=== PATIENT | male | born 1960 | race Caucasian/White ===

== ENCOUNTER 2016-08-02 08:59 | Observation (INO) | payer MEDICARE, OTHER ==
[2016-08-02] MEDS ORDERED: methylPREDNISolone Sodium Succinate 125 MG/2 ML SDV IVPUSH ONE (09:10)
[2016-08-02] MEDS ORDERED: Albuterol/Ipratropium 3.0-0.5 MG/3 ML Neb Soln NEB ONE (09:10)
--- NOTE | 2016-08-02 09:59 | EDM.PDOC ---
[id number]: NECK Time Seen by Provider: 08/02/16 09:05 Source of Information: Reports: Patient History Limitations: Reports: Respiratory Distress - History of Present Illness INITIAL COMMENTS - FREE TEXT/NARRATIVE: 55 years old w m with h/o COPD, Asthma, a fib, S/P neck surgery, d/c'd from [place] 2 days ago, came to the ed [facility] he " can not breath. hs HR was 142, Irr irr. SBP was 187, puls ox was 99% on RA. Pt came by EMS, no Family is present. Pt c/o of sore throat as well and feels his neck is tight. no other acute medical issues at this time Onset: Today Onset Date: 08/01/16 Onset Time: 08:00 Duration: Hour(s):, Getting Worse, Intermittent Location: Reports: Chest Quality: Reports: Burning Severity: Moderate Improves with: Reports: Medication Worsens with: Reports: Movement Context: Reports: Trauma (neck surgery) - Related Data Allergies Allergy/AdvReac Type Severity Reaction Status Date / Time No Known Allergies Allergy Verified 08/02/16 09:39 Home Meds: Home Meds Albuterol Sulfate [Albuterol Sulfate HFA] 2 puff INH Q4HR PRN 03/06/14 [History] Allopurinol [Zyloprim] 300 mg PO DAILY 03/06/14 [History] Digoxin 0.25 mg PO DAILY 03/06/14 [History] Omeprazole 20 mg PO BIDAC 03/06/14 [History] Warfarin [Coumadin] 10 mg PO SUTUWETHSA 03/06/14 [History] Budesonide/Formoterol [Symbicort 160-4.5 MCG] 2 inhalation INH BID 04/13/15 [ History] Warfarin [Coumadin] 7.5 mg PO MOFR 01/05/16 [History] atorvaSTATin [Lipitor] 20 mg PO BEDTIME 01/05/16 [History] Acetaminophen [Tylenol] 650 mg PO Q4H PRN #0 tablet 01/06/16 [Rx] Metoprolol Tartrate [Lopressor] 50 mg PO BID tablet 01/06/16 [Rx] Enoxaparin [Lovenox] 150 mg SUBCUT BID 08/02/16 [History] Gabapentin [Neurontin] 600 mg PO BID 08/02/16 [History] Tetrahydrozoline HCl [Visine] 1 drop EYEBOTH DAILY PRN 08/02/16 [History] metFORMIN [Glucophage] 500 mg PO BID 08/02/16 [History] rOPINIRole HCl [Requip] 8 mg PO BEDTIME 08/02/16 [History] Past Medical History Cardiovascular History: Reports: Afib, Hypertension, SOB on Exertion Respiratory History: Reports: COPD, Pneumonia, Recurrent Other Respiratory History: uses CPAP and has sleep apnea Gastrointestinal History: Reports: Irritable Bowel Syndrome Other Gastrointestinal History: diverticulitis Genitourinary History: Reports: Diabetic Nephropathy Musculoskeletal History: Reports: Fracture, Osteoarthritis Neurological History: Reports: Concussion, Neuropathy, Diabetic, Neuropathy, Peripheral Psychiatric History: Reports: ADD, Depression Endocrine/Metabolic History: Reports: Diabetes, Type II - Infectious Disease History Infectious Disease History: Reports: Chicken Pox, Measles, Shingles - Past Surgical History HEENT Surgical History: Reports: Tonsillectomy GI Surgical History: Reports: Hernia Repair/Other Musculoskeletal Surgical History: Reports: Arthroscopic Knee, Other (See Below) Social & Family History - Family History Family Medical History: Noncontributory - Tobacco Use Smoking Status *Q: Former Smoker Years of Tobacco use: 20 Packs/Tins Daily: 2 Used Tobacco, but Quit: Yes Month Tobacco Last Used: quit 2 years ago Second Hand Smoke Exposure: No - Caffeine Use Caffeine Use: Reports: Coffee, Tea Other Caffeine Use: 2 cups per day - Alcohol Use Days Per Week of Alcohol Use: 0 - Recreational Drug Use Recreational Drug Use: No ED ROS GENERAL - Review of Systems Review Of Systems: See Below Constitutional: Reports: No Symptoms HEENT: Reports: Throat Pain Respiratory: Reports: Shortness of Breath, Wheezing Cardiovascular: Reports: Palpitations Endocrine: Reports: No Symptoms GI/Abdominal: Reports: No Symptoms : Reports: No Symptoms Musculoskeletal: Reports: No Symptoms Skin: Reports: No Symptoms Neurological: Reports: No Symptoms Psychiatric: Reports: No Symptoms Hematologic/Lymphatic: Reports: No Symptoms Immunologic: Reports: No Symptoms ED EXAM, GENERAL - Physical Exam Exam: See Below Exam Limited By: Physical Impairment General Appearance: Alert, WD/WN, Anxious, Moderate Distress Eye Exam: Bilateral Eye: Normal Inspection Ears: Normal External Exam Ear Exam: Bilateral Ear: Auricle Normal Nose: Normal Inspection Throat/Mouth: Other (pharyngitis) Head: Atraumatic, Normocephalic Neck: Normal Inspection, Supple Respiratory/Chest: Respiratory Distress, Decreased Breath Sounds, Rhonchi, Wheezing Cardiovascular: Tachycardia, Irregularly Irregular Peripheral Pulses: 1+: Femoral (L), Femoral (R) GI/Abdominal: Normal Bowel Sounds, Soft, Non-Tender (Male) Exam: Deferred Rectal (Males) Exam: Deferred Back Exam: Normal Inspection Extremities: Normal Inspection, Normal Range of Motion, Non-Tender, No Pedal Edema Neurological: Alert, Oriented, CN II-XII Intact, Normal Cognition Psychiatric: Normal Affect, Normal Mood Skin Exam: Warm, Dry, Intact Lymphatic: No Adenopathy EKG INTERPRETATION EKG Date: 08/02/16 Time: 09:50 Rhythm: A-Fib Rate (Beats/Min): 143 [place]: Normal P-Wave: Absent QRS: Normal ST-T: Normal QT: Normal Comparison: NA - No Prior EKG Course - Vital Signs Text/Narrative:: 55 years old w m with h/o COPD, Asthma, a fib, S/P neck surgery, d/c'd from [place] 2 days ago, came [facility] the [place] [facility] he " can not breath. hs HR was 142, Irr irr. SBP was 187, puls ox was 99% on RA. Pt came by EMS, no Family is present. Pt c/o of sore throat as well and feels his neck is tight. no other acute medical issues at this time PE: Morbid obese, pharyngitis, exp wheezes, afib with RVR HTN Labs: HGB A1C1 7.1 CBC wnl INR subtherapeutic (1.05) pt is on Coumadine, D Dimer < 300 RST neg Imaging: Soft tissue neck: neg. CXR COPD, no infiltrates ECG: please see note above Impression: Subtherapeutic INR, Asthma/COPD exacerbation, pharyngitis, morbid obese, Hyponatremia. A fib with RVR Tx: Cardiacem, Duoneb, solu medrol, Reexam: Improved Plan: Admit toe canas. Last Recorded V/S: Last Vital Signs Temp 36.7 C 08/02/16 13:40 Pulse 104 H 08/02/16 15:19 Resp 17 08/02/16 15:19 BP 135/90 08/02/16 15:19 Pulse Ox 97 08/02/16 15:22 - Orders/Labs/Meds Orders: Active Orders 24 hr Category Date Time Status Chest 2V [CR] Stat Exams 08/02/16 09:10 Taken Neck Soft Tissue [CR] Stat Exams 08/02/16 11:13 Taken STREP SCRN A RAPID W CULT CONF [RM] Stat Lab 08/02/16 12:32 Results Sodium Chloride 0.9% [Saline Flush] Med 08/02/16 10:26 Active 10 ml FLUSH ASDIRECTED PRN Saline Lock Insert [OM.PC] Routine Oth 08/02/16 10:26 Ordered Medication Orders Acetaminophen (Tylenol) 650 mg PO Q4H PRN PRN Reason: Pain Albuterol/Ipratropium (Duoneb 3.0-0.5 Mg/3 Ml) 3 ml NEB QIDRT [facility] Allopurinol (Zyloprim) 300 mg PO DAILY [facility] Atorvastatin Calcium (Lipitor) 20 mg PO BEDTIME [facility] Digoxin (Lanoxin) 250 mcg PO DAILY [facility] Gabapentin (Neurontin) 600 mg PO BID [facility] Potassium Chloride/Sodium Chloride (Normal Saline With 20 Meq Kcl) 1,000 mls @ 250 mls/hr IV ASDIRECTED [facility] Stop: 08/02/16 21:14 Potassium Chloride/Sodium Chloride (Normal Saline With 20 Meq Kcl) 1,000 mls @ 125 mls/hr IV ASDIRECTED [facility] Metformin HCl (Glucophage) 500 mg PO BID [facility] Metoprolol Tartrate (Lopressor) 25 mg PO Q6H [facility] Last Admin: 08/02/16 14:23 Dose: 25 mg Metoprolol Tartrate (Lopressor) 5 mg IVPUSH Q4H PRN PRN Reason: HR>120 bpm sustained 20 min Metoprolol Tartrate (Lopressor) 75 mg PO Q12H [facility] (Enoxaparin [Lovenox (] 150 Mg) *Ptom) 150 mg SUBCUT BID [facility] Non-Formulary Medication (Tetrahydrozoline Hcl [Visine]) 1 drop EYEBOTH DAILY PRN PRN Reason: Dry Eyes Omeprazole (Omeprazole) 20 mg PO BID@0600,1730 [facility] Last Admin: 08/02/16 17:17 Dose: 20 mg Ondansetron HCl (Zofran) 4 mg IV Q4H PRN PRN Reason: Nausea/Vomiting Prednisone (Prednisone) 40 mg PO DAILY [facility] Ropinirole HCl (Requip) 8 mg PO BEDTIME [facility] Sodium Chloride (Saline Flush) 10 ml FLUSH ASDIRECTED PRN PRN Reason: Keep Vein Open Last Admin: 08/02/16 10:30 Dose: 10 ml Admin: 08/02/16 10:29 Dose: 10 ml Sodium Chloride (Saline Flush) 10 ml FLUSH ASDIRECTED PRN PRN Reason: Keep Vein Open Warfarin Sodium (Coumadin) 10 mg PO SuTuWeThSa@1600 [facility] Warfarin Sodium (Coumadin) 7.5 mg PO MoFr@1600 [facility] Labs: Laboratory Tests 08/02/16 08/02/16 08/02/16 Range/Units 09:25 09:25 09:25 WBC 8.8 (4.5-12.0) X10-3/uL RBC 5.36 (4.30-5.75) x10(6)uL Hgb 15.2 (11.5-15.5) g/dL Hct 46.4 (30.0-51.3) % MCV 86.4 (80-96) fL MCH 28.3 (27.7-33.6) pg MCHC 32.8 (32.2-35.4) g/dL RDW 14.3 (11.5-15.5) % Plt Count 173 (125-369) X10(3)uL MPV 9.5 (7.4-10.4) fL Neut % (Auto) 71.0 (46-82) % Lymph % (Auto) 17.6 (13-37) % Jackson % (Auto) 8.2 (4-12) % Eos % (Auto) 1 (1.0-5.0) % Baso % (Auto) 3 H (0-2) % Neut # (Auto) 6.3 (1.6-8.3) # Lymph # (Auto) 1.5 (0.6-5.0) # Jackson # (Auto) 0.7 (0.0-1.3) # Eos # (Auto) 0.1 (0.0-0.8) # Baso # (Auto) 0.2 (0.0-0.2) # PT (8.7-11.1) INR (0.89-1.13) D-Dimer, Quantitative 306 (100-400) ng/mL Sodium 134 L (135-145) mmol/L Potassium 4.2 (3.5-5.3) mmol/L Chloride 99 L (100-110) mmol/L Carbon Dioxide 24 (23-29) mmol/L BUN 15 (5-20) mg/dL Creatinine 1.0 (0.6-1.3) mg/dL Est Cr Clr Drug Dosing TNP Estimated GFR (MDRD) > 60 (>60) BUN/Creatinine Ratio 15.0 (9-20) Glucose 208 H (80-116) mg/dL Hemoglobin A1c (4.0-6.0) % Calcium 9.0 (8.6-10.2) mg/dL B-Natriuretic Peptide (0-100) pg/mL 08/02/16 08/02/16 08/02/16 Range/Units 09:25 09:25 10:00 WBC (4.5-12.0) X10-3/uL RBC (4.30-5.75) x10(6)uL Hgb (11.5-15.5) g/dL Hct (30.0-51.3) % MCV (80-96) fL MCH (27.7-33.6) pg MCHC (32.2-35.4) g/dL RDW (11.5-15.5) % Plt Count (125-369) X10(3)uL MPV (7.4-10.4) fL Neut % (Auto) (46-82) % Lymph % (Auto) (13-37) % Jackson % (Auto) (4-12) % Eos % (Auto) (1.0-5.0) % Baso % (Auto) (0-2) % Neut # (Auto) (1.6-8.3) # Lymph # (Auto) (0.6-5.0) # Jackson # (Auto) (0.0-1.3) # Eos # (Auto) (0.0-0.8) # Baso # (Auto) (0.0-0.2) # PT 10.6 (8.7-11.1) INR 1.05 (0.89-1.13) D-Dimer, Quantitative (100-400) ng/mL Sodium (135-145) mmol/L Potassium (3.5-5.3) mmol/L Chloride (100-110) mmol/L Carbon Dioxide (23-29) mmol/L BUN (5-20) mg/dL Creatinine (0.6-1.3) mg/dL Est Cr Clr Drug Dosing Estimated GFR (MDRD) (>60) BUN/Creatinine Ratio (9-20) Glucose (80-116) mg/dL Hemoglobin A1c 7.1 H (4.0-6.0) % Calcium (8.6-10.2) mg/dL B-Natriuretic Peptide 98 (0-100) pg/mL Meds: Medications Generic Name Dose Route Start Last Admin Trade Name Freq PRN Reason Stop Dose Admin Acetaminophen 650 mg 08/02/16 16:26 Tylenol PO Q4H PRN Pain Albuterol/Ipratropium 3 ml 08/02/16 18:00 Duoneb 3.0-0.5 Mg/3 Ml NEB QIDRT [facility] Allopurinol 300 mg 08/03/16 09:00 Zyloprim PO DAILY [facility] Atorvastatin Calcium 20 mg 08/02/16 21:00 Lipitor PO BEDTIME [facility] Digoxin 250 mcg 08/03/16 09:00 Lanoxin PO DAILY [facility] Gabapentin 600 mg 08/02/16 21:00 Neurontin PO BID [facility] Potassium Chloride/Sodium Chloride 1,000 mls @ 250 mls/hr 08/02/16 17:15 Normal Saline With 20 Meq Kcl IV 08/02/16 21:14 ASDIRECTED [facility] Potassium Chloride/Sodium Chloride 1,000 mls @ 125 mls/hr 08/02/16 21:15 Normal Saline With 20 Meq Kcl IV ASDIRECTED [facility] Metformin HCl 500 mg 08/02/16 21:00 Glucophage PO BID [facility] Metoprolol Tartrate 25 mg 08/02/16 14:00 08/02/16 14:23 Lopressor PO 25 mg Q6H [facility] Administration Metoprolol Tartrate 5 mg 08/02/16 14:20 Lopressor IVPUSH Q4H PRN HR>120 bpm sustained 20 min Metoprolol Tartrate 75 mg 08/02/16 21:00 Lopressor PO Q12H [facility] (Enoxaparin [Lovenox 150 mg 08/02/16 21:00 ] 150 Mg) *Ptom SUBCUT BID [facility] Non-Formulary Medication 1 drop 08/02/16 15:15 Tetrahydrozoline Hcl [Visine] EYEBOTH DAILY PRN Dry Eyes Omeprazole 20 mg 08/02/16 17:30 08/02/16 17:17 Omeprazole PO 20 mg BID@0600,1730 [facility] Administration Ondansetron HCl 4 mg 08/02/16 11:19 Zofran IV Q4H PRN Nausea/Vomiting Prednisone 40 mg 08/03/16 09:00 Prednisone PO DAILY [facility] Ropinirole HCl 8 mg 08/02/16 21:00 Requip PO BEDTIME [facility] Sodium Chloride 10 ml 08/02/16 10:26 08/02/16 10:30 Saline Flush FLUSH 10 ml ASDIRECTED PRN Administration Keep Vein Open Sodium Chloride 10 ml 08/02/16 11:19 Saline Flush FLUSH ASDIRECTED PRN Keep Vein Open Warfarin Sodium 10 mg 08/02/16 16:00 Coumadin PO SuTuWeThSa@1600 [facility] Warfarin Sodium 7.5 mg 08/05/16 16:00 Coumadin PO MoFr@1600 [facility] Discontinued Medications Generic Name Dose Route Start Last Admin Trade Name Freq PRN Reason Stop Dose Admin Albuterol/Ipratropium 3 ml 08/02/16 09:10 08/02/16 09:14 Duoneb 3.0-0.5 Mg/3 Ml NEB 08/02/16 09:11 3 ml ONETIME ONE Administration Diltiazem HCl 20 mg 08/02/16 10:01 08/02/16 10:25 Diltiazem IVPUSH 08/02/16 10:02 20 mg ONETIME ONE Administration Methylprednisolone Sodium Succinate 125 mg 08/02/16 09:10 08/02/16 10:20 Solu-Medrol IVPUSH 08/02/16 09:11 125 mg ONETIME ONE Administration Metoprolol Tartrate 50 mg 08/02/16 21:00 Lopressor PO BID [facility] Departure - Departure Time of Disposition: 13:00 Disposition: Refer to Observation Condition: Fair Clinical Impression: Atrial fibrillation with RVR, Neck pain COPD (chronic obstructive pulmonary disease) Qualifiers: COPD type: COPD with acute exacerbation Qualified Code(s): J44.1 - Chronic obstructive pulmonary disease with (acute) exacerbation - Discharge Information - My Orders Last 24 Hours: My Active Orders 08/02/16 09:10 Chest 2V [CR] Stat 08/02/16 10:26 Sodium Chloride 0.9% [Saline Flush] 10 ml FLUSH ASDIRECTED PRN Saline Lock Insert [OM.PC] Routine 08/02/16 11:13 Neck Soft Tissue [CR] Stat 08/02/16 12:32 STREP SCRN A RAPID W CULT CONF [RM] Stat - Assessment/Plan Last 24 Hours: My Active Orders 08/02/16 09:10 Chest 2V [CR] Stat 08/02/16 10:26 Sodium Chloride 0.9% [Saline Flush] 10 ml FLUSH ASDIRECTED PRN Saline Lock Insert [OM.PC] Routine 08/02/16 11:13 Neck Soft Tissue [CR] Stat 08/02/16 12:32 STREP SCRN A RAPID W CULT CONF [RM] Stat
[2016-08-02] MEDS ORDERED: Diltiazem 25 MG/5 ML SDV IVPUSH ONE (10:01)
[2016-08-02] MEDS: Sodium Chloride 0.9% 10 ML Syringe FLUSH PRN ×2 (10:29→10:30)
[2016-08-02] MEDS ORDERED: Ondansetron 4 MG/2 ML SDV IV PRN (11:19)
[2016-08-02] MEDS ORDERED: Sodium Chloride 0.9% 10 ML Syringe FLUSH PRN (11:19)
[2016-08-02] MEDS ORDERED: Metoprolol Tartrate 25 MG Tab PO SCH (14:00)
[2016-08-02] MEDS ORDERED: Metoprolol Tartrate 5 MG/5 ML SDV IVPUSH PRN (14:20)
[2016-08-02] MEDS ORDERED: TETRAHYDROZOLINE HCL EYEBOTH PRN (15:15)
[2016-08-02] MEDS ORDERED: Warfarin 2 MG Tab PO SCH (16:00)
[2016-08-02] MEDS ORDERED: Warfarin 5 MG Tab *PTOM PO SCH (16:00)
--- NOTE | 2016-08-02 16:23 | PCM.HP ---
H&P History of Present Illness - General Date of Service: 08/02/16 Admit Problem/Dx: Admission Diagnosis/Problem Admission Diagnosis/Problem COPD, Moderate chronic obstructive pulmonary disease - Related Data Allergies/Adverse Reactions: Allergies Allergy/AdvReac Type Severity Reaction Status Date / Time No Known Allergies Allergy Verified 08/02/16 09:39 Home Medications: Home Meds Albuterol Sulfate [Albuterol Sulfate HFA] 2 puff INH Q4HR PRN 03/06/14 [History] Allopurinol [Zyloprim] 300 mg PO DAILY 03/06/14 [History] Digoxin 0.25 mg PO DAILY 03/06/14 [History] Omeprazole 20 mg PO BIDAC 03/06/14 [History] Warfarin [Coumadin] 10 mg PO SUTUWETHSA 03/06/14 [History] Budesonide/Formoterol [Symbicort 160-4.5 MCG] 2 inhalation INH BID 04/13/15 [ History] Warfarin [Coumadin] 7.5 mg PO MOFR 01/05/16 [History] atorvaSTATin [Lipitor] 20 mg PO BEDTIME 01/05/16 [History] Acetaminophen [Tylenol] 650 mg PO Q4H PRN #0 tablet 01/06/16 [Rx] Metoprolol Tartrate [Lopressor] 50 mg PO BID tablet 01/06/16 [Rx] Enoxaparin [Lovenox] 150 mg SUBCUT BID 08/02/16 [History] Gabapentin [Neurontin] 600 mg PO BID 08/02/16 [History] Tetrahydrozoline HCl [Visine] 1 drop EYEBOTH DAILY PRN 08/02/16 [History] metFORMIN [Glucophage] 500 mg PO BID 08/02/16 [History] rOPINIRole HCl [Requip] 8 mg PO BEDTIME 08/02/16 [History] Past Medical History Cardiovascular History: Reports: Afib, Hypertension, SOB on Exertion Respiratory History: Reports: COPD, Pneumonia, Recurrent Other Respiratory History: uses CPAP and has sleep apnea Gastrointestinal History: Reports: Irritable Bowel Syndrome Other Gastrointestinal History: diverticulitis Genitourinary History: Reports: Diabetic Nephropathy Musculoskeletal History: Reports: Fracture, Osteoarthritis Neurological History: Reports: Concussion, Neuropathy, Diabetic, Neuropathy, Peripheral Psychiatric History: Reports: ADD, Depression Endocrine/Metabolic History: Reports: Diabetes, Type II - Infectious Disease History Infectious Disease History: Reports: Chicken Pox, Measles, Shingles - Past Surgical History HEENT Surgical History: Reports: Tonsillectomy GI Surgical History: Reports: Hernia Repair/Other Musculoskeletal Surgical History: Reports: Arthroscopic Knee, Other (See Below) Social & Family History - Family History Family Medical History: Noncontributory - Tobacco Use Smoking Status *Q: Former Smoker Years of Tobacco use: 35 Packs/Tins Daily: 2 Used Tobacco, but Quit: Yes Month Tobacco Last Used: 3 years Second Hand Smoke Exposure: No - Caffeine Use Caffeine Use: Reports: Coffee, Soda Other Caffeine Use: 2 cups per day - Alcohol Use Days Per Week of Alcohol Use: 0 - Recreational Drug Use Recreational Drug Use: No Exam - Vital Signs Vital Signs: Last Vital Signs Temp 98.1 F 08/02/16 13:40 Pulse 104 H 08/02/16 15:19 Resp 17 08/02/16 15:19 BP 135/90 08/02/16 15:19 Pulse Ox 97 08/02/16 15:22 Weight: 143.063 kg - Patient Data Result Diagrams: 08/02/16 09:25 08/02/16 09:25 Holden Results Last 24 hrs: Microbiology 08/02/16 12:32 Group A Streptococcus Rapid Screen - Final Throat NEGATIVE STREP A SCREEN *Q Meaningful Use (ADM) - VTE *Q VTE Criteria *Q: - Stroke *Q Stroke Criteria *Q: - AMI *Q AMI Criteria *Q: Orders Last 24hrs: Active Orders 24 hr Category Date Time Status CPAP Adult [RT BiPAP/CPAP] [RC] ASDIRECTED Care 08/02/16 13:58 Active Communication Order [RC] ASDIRECTED Care 08/02/16 14:11 Active Notify Provider [RC] PRN Care 08/02/16 14:11 Active RT Aerosol Therapy [RC] ASDIRECTED Care 08/02/16 16:22 Ordered RT Incentive Spirometry [RC] Q2HWA Care 08/02/16 14:11 Active Telemetry Monitoring [Cardiac Monitoring] [RC] .As Care 08/02/16 11:27 Active Directed Consult to Pharmacy [CONS] Routine Cons 08/02/16 14:11 Active Respiratory Care Assess and Treatment [CONS] Routine Cons 08/02/16 14:11 Active CBC WITH AUTO DIFF [HEME] AM Lab 08/03/16 05:11 Ordered COMPREHENSIVE METABOLIC PN,CMP [CHEM] AM Lab 08/03/16 05:11 Ordered CULTURE STREP A CONFIRMATION [RM] Stat Lab 08/02/16 12:32 Results GLYCOSYLATED HEMOGLOBIN,HGBA1C [CHEM] Routine Lab 08/02/16 09:25 Received INR,PT,PROTHROMBIN TIME [COAG] DAILY Lab 08/03/16 05:10 Ordered INR,PT,PROTHROMBIN TIME [COAG] DAILY Lab 08/04/16 05:10 Ordered INR,PT,PROTHROMBIN TIME [COAG] DAILY Lab 08/05/16 05:10 Ordered INR,PT,PROTHROMBIN TIME [COAG] DAILY Lab 08/06/16 05:10 Ordered INR,PT,PROTHROMBIN TIME [COAG] DAILY Lab 08/07/16 05:10 Ordered INR,PT,PROTHROMBIN TIME [COAG] DAILY Lab 08/08/16 05:10 Ordered MAGNESIUM [CHEM] Routine Lab 08/02/16 16:00 Ordered TROPONIN I [CHEM] Timed Lab 08/02/16 16:00 Ordered TSH ULTRASENSITIVE [CHEM] Timed Lab 08/02/16 16:00 Ordered Acetaminophen [Tylenol] Med 08/02/16 14:18 Ordered 650 mg PO Q4H PRN Albuterol/Ipratropium [DuoNeb 3.0-0.5 MG/3 ML] Med 08/02/16 18:00 Ordered 3 ml NEB QIDRT Allopurinol [Zyloprim] Med 08/03/16 09:00 Ordered 300 mg PO DAILY Digoxin [Digoxin] Med 08/03/16 09:00 Ordered 0.25 mg PO DAILY Enoxaparin [Lovenox] Med 08/02/16 21:00 Active 150 mg SUBCUT BID Gabapentin [Neurontin] Med 08/02/16 21:00 Ordered 600 mg PO BID Metoprolol Tartrate [Lopressor] Med 08/02/16 14:00 Active 25 mg PO Q6H Metoprolol Tartrate [Lopressor] Med 08/02/16 14:20 Active 5 mg IVPUSH Q4H PRN Metoprolol Tartrate [Lopressor] Med 08/02/16 21:00 Ordered 50 mg PO BID Omeprazole [Omeprazole] Med 08/02/16 17:30 Ordered 20 mg PO BIDAC Tetrahydrozoline HCl [Visine] Med 08/02/16 15:15 Ordered 1 drop EYEBOTH DAILY PRN Warfarin [Coumadin] Med 08/02/16 16:00 Ordered 10 mg PO SUTUWETHSA Warfarin [Coumadin] Med 08/05/16 16:00 Ordered 7.5 mg PO MOFR atorvaSTATin [Lipitor] Med 08/02/16 21:00 Ordered 20 mg PO BEDTIME metFORMIN [Glucophage] Med 08/02/16 18:00 Pending 500 mg PO BIDMEALS predniSONE Med 08/03/16 09:00 Active 40 mg PO DAILY rOPINIRole HCl [Requip] Med 08/02/16 21:00 Ordered 8 mg PO BEDTIME rOPINIRole [Requip] Med 08/02/16 21:00 Ordered 1 mg PO BEDTIME EKG 12 Lead [EK] Routine Ther 08/02/16 09:50 Ordered Medication Orders Albuterol/Ipratropium (Duoneb 3.0-0.5 Mg/3 Ml) 3 ml NEB QIDRT [facility] Metformin HCl (Glucophage) 500 mg PO BIDMEALS [facility] Metoprolol Tartrate (Lopressor) 25 mg PO Q6H [facility] Last Admin: 08/02/16 14:23 Dose: 25 mg Metoprolol Tartrate (Lopressor) 5 mg IVPUSH Q4H PRN PRN Reason: HR>120 bpm sustained 20 min Non-Formulary Medication (Acetaminophen [Tylenol]) 650 mg PO Q4H PRN PRN Reason: Pain Non-Formulary Medication (Allopurinol [Zyloprim]) 300 mg PO DAILY [facility] Non-Formulary Medication (Digoxin [Digoxin]) 0.25 mg PO DAILY [facility] Non-Formulary Medication (Metoprolol Tartrate [Lopressor]) 50 mg PO BID [facility] Non-Formulary Medication (Ropinirole [Requip]) 1 mg PO BEDTIME [facility] (Enoxaparin [Lovenox (] 150 Mg) *Ptom) 150 mg SUBCUT BID [facility] Non-Formulary Medication (Gabapentin [Neurontin]) 600 mg PO BID [facility] Non-Formulary Medication (Tetrahydrozoline Hcl [Visine]) 1 drop EYEBOTH DAILY PRN PRN Reason: Dry Eyes Non-Formulary Medication (Atorvastatin [Lipitor]) 20 mg PO BEDTIME [facility] Non-Formulary Medication (Ropinirole Hcl [Requip]) 8 mg PO BEDTIME [facility] Non-Formulary Medication (Warfarin [Coumadin]) 10 mg PO SUTUWETHSA [facility] Non-Formulary Medication (Warfarin [Coumadin]) 7.5 mg PO MOFR [facility] Non-Formulary Medication (Omeprazole [Omeprazole]) 20 mg PO BIDAC [facility] Ondansetron HCl (Zofran) 4 mg IV Q4H PRN PRN Reason: Nausea/Vomiting Prednisone (Prednisone) 40 mg PO DAILY [facility] Sodium Chloride (Saline Flush) 10 ml FLUSH ASDIRECTED PRN PRN Reason: Keep Vein Open Last Admin: 08/02/16 10:30 Dose: 10 ml Admin: 08/02/16 10:29 Dose: 10 ml Sodium Chloride (Saline Flush) 10 ml FLUSH ASDIRECTED PRN PRN Reason: Keep Vein Open
[2016-08-02] MEDS ORDERED: Acetaminophen 325 MG Tab PO PRN (16:26)
[2016-08-02] MEDS ORDERED: NS + KCl 20mEq/L 1,000 ML IV SCH ×2 (17:15→21:15)
[2016-08-02] MEDS: Omeprazole 20 MG Cap.CR *PTOM PO SCH (17:17)
[2016-08-02] MEDS ORDERED: METOPROLOL TARTRATE 50 MG PO ONE (18:36)
[2016-08-02] MEDS ORDERED: Acetaminophen/HYDROcodone 325-5 MG Tab PO PRN (18:39)
[2016-08-02] MEDS: Albuterol/Ipratropium 3.0-0.5 MG/3 ML Neb Soln NEB SCH ×2 (18:59→21:36)
[2016-08-02] MEDS ORDERED: Aluminum Hydroxide/Magnesium Hydroxide Susp 30 ML Cup PO PRN (20:26)
[2016-08-02] MEDS ORDERED: ROPINIROLE 1 MG PO SCH (21:00)
[2016-08-02] MEDS ORDERED: METOPROLOL TARTRATE 50 MG PO SCH ×2 (21:00)
[2016-08-02] MEDS ORDERED: atorvaSTATin 20 MG Tab *PTOM PO SCH (21:00)
[2016-08-02] MEDS ORDERED: ROPINIROLE 4 MG PO SCH (21:00)
[2016-08-02] MEDS: ENOXAPARIN 150 MG SUBCUT SCH (21:37)
[2016-08-02] MEDS: metFORMIN 500 MG Tab *PTOM PO SCH (21:37)
[2016-08-02] MEDS: Gabapentin 600 MG Tab *PTOM PO SCH (21:39)
[2016-08-03] MEDS: Omeprazole 20 MG Cap.CR *PTOM PO SCH ×2 (06:34→16:45)
[2016-08-03] MEDS ORDERED: Metoprolol Tartrate 100 MG Tab PO SCH ×2 (07:00→18:30)
[2016-08-03] MEDS: Albuterol/Ipratropium 3.0-0.5 MG/3 ML Neb Soln NEB SCH ×3 (07:05→15:09)
[2016-08-03] MEDS ORDERED: METOPROLOL TARTRATE 50 MG PO SCH (08:00)
[2016-08-03] MEDS ORDERED: DIGOXIN 250 MCG PO SCH (09:00)
[2016-08-03] MEDS ORDERED: predniSONE 20 MG Tab PO SCH (09:00)
[2016-08-03] MEDS ORDERED: Allopurinol 300 MG Tab *PTOM PO SCH (09:00)
--- NOTE | 2016-08-03 09:11 | CR ---
INDICATION: Shortness of breath. CHEST: PA and lateral views of the chest, 08/02/2016, were compared with 2015 and 11/30/2015, again revealing the heart to appear prominent, at least partly due to a relatively poor inspiration. There may be a mild degree of cardiomegaly present, however. The aorta is tortuous with calcification minimally in the arch. Overlying EKG leads are noted. A definite active infiltrate or effusion was not identified. Lateral pleural thickening is again noted. No evidence for severe COPD or CHF could be identified. IMPRESSION: Fairly stable appearance of the chest. No definite acute process. Heavy markings emphasized by poor inspiration. Heart size emphasized by poor inspiration. MTDD
--- NOTE | 2016-08-03 09:19 | CR ---
INDICATION: Soft tissue swelling. NECK SOFT TISSUE: Frontal and lateral views of the neck were obtained with soft tissue, with two lateral views obtained. There is what appears to be a fairly marked increase in the prevertebral space deviating the airway anteriorly. Whether this represents a post traumatic hematoma, abscess, or mass is difficult to determine. There is noted a fractured hypertrophic lip of the L3 vertebral body anteroinferiorly. Most likely this is old. Fusion is noted at the C5 through C7 levels with an anterior plate and [address] and appearing grossly intact. Visualized disk spaces appear to be fairly well maintained, as are the vertebral body heights. IMPRESSION: Markedly increased prevertebral space measuring at least 36 mm at the C4 level. A mass or inflammatory soft tissue swelling is suggested with this appearance. CT is recommended for further evaluation. MTDD
[2016-08-03] MEDS: ENOXAPARIN 150 MG SUBCUT SCH (10:06)
[2016-08-03] MEDS: metFORMIN 500 MG Tab *PTOM PO SCH (10:07)
[2016-08-03] MEDS: Gabapentin 600 MG Tab *PTOM PO SCH (10:08)
--- NOTE | 2016-08-03 20:11 | PCM.SN ---
- Free Text/Narrative Note: Admission History & Physical Patient Name: DORENE BAUTISTA JR Date of : 60 Patient Status: Observation Attending Provider: Britni Cardona Date: 08/02/16 16:23 Initialization Date: 08/02/16 16:23 H&P History of Present Illness - General Date of Service: 08/02/16 Admit Problem/Dx: Admission Diagnosis/Problem Admission Diagnosis/Problem HPI: 55y pleasant male with chronic afib, recently post op cervical spine fusion ( scheduled) at [facility] and discharge 2-3 days ago. he noted that had been have more 'fullness feeling in the neck' and some what short of breath. some hx of copd of scheduled symbicort and albuterol rescue inhaler. he states that he simply got up and walked outside to see if this would improve his symptoms. never thought to try his rescue inhaler. he was not having cp, shoulder or jaw pain. no cough or congestion. no choking or fevers. no drainage, warmth, redness , pain or swelling from the incision. no lightheadedness or weakness on standing. no nausea, vomiting, diarrhea, decreased urine output, focal weakness , bruising, joint swelling or sudden onset edema. presented to the ER via private vehicle for the above. HR noted to be in the 140-150s, still in afib, normotensive, no pain or diaphoresis. chronically rate controlled with metoprolol, also on digoxin for a number of years with hx of [place], ablation, PE, cardioversion, DVT or stroke. No hx of stents, artificial valves or pacemaker. Hx includes JASON for which his is consistent with his CPAP at night. Hx also includes hyperuricemia with hx of gouty arthritis controlled with allpurinol. Hx of DM2 non insulin dependant and doesnt check his blood sugars. no hx of s/s of hypoglycemia or increase thirst urination. metformin oral for control. Currently being bridged outpt with Lovenox at 150 mg sc bid with his current INR at 1.01. he had just re-started his warfarin at 3.5 mg last night and took his second dose of lovenox this morning. His d-dimer normal. cxr showed showed no acute infiltrate, but some pulmonary evidence of copd and no failure. EKG otherwise was negative for blocks, st segment changes, qwaves, or t-wave changes. trops x 2 negative. bnp normal. wbc/h/h normal as well as electrolytes. a little dehydrated. otherwise no complaints. given and bolus of fluid, duoneb and solumedrol 125 mg IV which improved his fullness in the neck and shortness of breath, iv diltiazem x 1 which only tempered his HR down to the 120s while in the ER. - Related Data Allergies/Adverse Reactions: Allergies Allergy/AdvReac Type Severity Reaction Status Date / Time No Known Allergies Allergy Verified 08/02/16 09:39 Home Medications: Home Meds Albuterol Sulfate [Albuterol Sulfate HFA] 2 puff INH Q4HR PRN 03/06/14 [History] Allopurinol [Zyloprim] 300 mg PO DAILY 03/06/14 [History] Digoxin 0.25 mg PO DAILY 03/06/14 [History] Omeprazole 20 mg PO BIDAC 03/06/14 [History] Warfarin [Coumadin] 10 mg PO SUTUWETHSA 03/06/14 [History] Budesonide/Formoterol [Symbicort 160-4.5 MCG] 2 inhalation INH BID 04/13/15 [ History] Warfarin [Coumadin] 7.5 mg PO MOFR 01/05/16 [History] atorvaSTATin [Lipitor] 20 mg PO BEDTIME 01/05/16 [History] Acetaminophen [Tylenol] 650 mg PO Q4H PRN #0 tablet 01/06/16 [Rx] Metoprolol Tartrate [Lopressor] 50 mg PO BID tablet 01/06/16 [Rx] Enoxaparin [Lovenox] 150 mg SUBCUT BID 08/02/16 [History] Gabapentin [Neurontin] 600 mg PO BID 08/02/16 [History] Tetrahydrozoline HCl [Visine] 1 drop EYEBOTH DAILY PRN 08/02/16 [History] metFORMIN [Glucophage] 500 mg PO BID 08/02/16 [History] rOPINIRole HCl [Requip] 8 mg PO BEDTIME 08/02/16 [History] Past Medical History Cardiovascular History: Reports: Afib, Hypertension, SOB on Exertion Respiratory History: Reports: COPD, Pneumonia, Recurrent Other Respiratory History: uses CPAP and has sleep apnea Gastrointestinal History: Reports: Irritable Bowel Syndrome Other Gastrointestinal History: diverticulitis Genitourinary History: Reports: Diabetic Nephropathy Musculoskeletal History: Reports: Fracture, Osteoarthritis Neurological History: Reports: Concussion, Neuropathy, Diabetic, Neuropathy, Peripheral Psychiatric History: Reports: ADD, Depression Endocrine/Metabolic History: Reports: Diabetes, Type II - Infectious Disease History Infectious Disease History: Reports: Chicken Pox, Measles, Shingles - Past Surgical History HEENT Surgical History: Reports: Tonsillectomy GI Surgical History: Reports: Hernia Repair/Other Musculoskeletal Surgical History: Reports: Arthroscopic Knee, Other (See Below) Social & Family History - Family History Family Medical History: Noncontributory - Tobacco Use Smoking Status *Q: Former Smoker Years of Tobacco use: 35 Packs/Tins Daily: 2 Used Tobacco, but Quit: Yes Month Tobacco Last Used: 3 years Second Hand Smoke Exposure: No - Caffeine Use Caffeine Use: Reports: Coffee, Soda Other Caffeine Use: 2 cups per day - Alcohol Use Days Per Week of Alcohol Use: 0 - Recreational Drug Use Recreational Drug Use: No Exam - Vital Signs Vital Signs: Last Vital Signs Temp 98.1 F 08/02/16 13:40 Pulse 104 H 08/02/16 15:19 Resp 17 08/02/16 15:19 BP 135/90 08/02/16 15:19 Pulse Ox 97 08/02/16 15:22 Weight: 143.063 kg Laboratory Tests 08/02/16 08/02/16 08/02/16 Range/Units 09:25 09:25 09:25 WBC 8.8 (4.5-12.0) X10-3/uL RBC 5.36 (4.30-5.75) x10(6)uL Hgb 15.2 (11.5-15.5) g/dL Hct 46.4 (30.0-51.3) % MCV 86.4 (80-96) fL MCH 28.3 (27.7-33.6) pg MCHC 32.8 (32.2-35.4) g/dL RDW 14.3 (11.5-15.5) % Plt Count 173 (125-369) X10(3)uL MPV 9.5 (7.4-10.4) fL Neut % (Auto) 71.0 (46-82) % Lymph % (Auto) 17.6 (13-37) % Gordon % (Auto) 8.2 (4-12) % Eos % (Auto) 1 (1.0-5.0) % Baso % (Auto) 3 H (0-2) % Neut # (Auto) 6.3 (1.6-8.3) # Lymph # (Auto) 1.5 (0.6-5.0) # Gordon # (Auto) 0.7 (0.0-1.3) # Eos # (Auto) 0.1 (0.0-0.8) # Baso # (Auto) 0.2 (0.0-0.2) # Add Manual Diff Neutrophils % (Manual) (46-82) % Band Neutrophils % (0-6) % Lymphocytes % (Manual) (13-37) % Monocytes % (Manual) (4-12) % PT (8.7-11.1) INR (0.89-1.13) D-Dimer, Quantitative 306 (100-400) ng/mL Sodium 134 L (135-145) mmol/L Potassium 4.2 (3.5-5.3) mmol/L Chloride 99 L (100-110) mmol/L Carbon Dioxide 24 (23-29) mmol/L BUN 15 (5-20) mg/dL Creatinine 1.0 (0.6-1.3) mg/dL Est Cr Clr Drug Dosing TNP Estimated GFR (MDRD) > 60 (>60) BUN/Creatinine Ratio 15.0 (9-20) Glucose 208 H (80-116) mg/dL Hemoglobin A1c (4.0-6.0) % Calcium 9.0 (8.6-10.2) mg/dL Magnesium (1.8-2.5) mg/dL Total Bilirubin (0.1-1.3) mg/dL AST (5-27) IU/L ALT (14-26) IU/L Alkaline Phosphatase (56-112) IU/L Troponin I (0.02-0.06) NG/ML B-Natriuretic Peptide (0-100) pg/mL Total Protein (6.0-8.0) g/dL Albumin (3.5-5.2) g/dL Globulin g/dL Albumin/Globulin Ratio TSH, Ultra Sensitive (0.4-5.5) nlU/mL 08/02/16 08/02/16 08/02/16 Range/Units 09:25 09:25 10:00 WBC (4.5-12.0) X10-3/uL RBC (4.30-5.75) x10(6)uL Hgb (11.5-15.5) g/dL Hct (30.0-51.3) % MCV (80-96) fL MCH (27.7-33.6) pg MCHC (32.2-35.4) g/dL RDW (11.5-15.5) % Plt Count (125-369) X10(3)uL MPV (7.4-10.4) fL Neut % (Auto) (46-82) % Lymph % (Auto) (13-37) % Gordon % (Auto) (4-12) % Eos % (Auto) (1.0-5.0) % Baso % (Auto) (0-2) % Neut # (Auto) (1.6-8.3) # Lymph # (Auto) (0.6-5.0) # Gordon # (Auto) (0.0-1.3) # Eos # (Auto) (0.0-0.8) # Baso # (Auto) (0.0-0.2) # Add Manual Diff Neutrophils % (Manual) (46-82) % Band Neutrophils % (0-6) % Lymphocytes % (Manual) (13-37) % Monocytes % (Manual) (4-12) % PT 10.6 (8.7-11.1) INR 1.05 (0.89-1.13) D-Dimer, Quantitative (100-400) ng/mL Sodium (135-145) mmol/L Potassium (3.5-5.3) mmol/L Chloride (100-110) mmol/L Carbon Dioxide (23-29) mmol/L BUN (5-20) mg/dL Creatinine (0.6-1.3) mg/dL Est Cr Clr Drug Dosing Estimated GFR (MDRD) (>60) BUN/Creatinine Ratio (9-20) Glucose (80-116) mg/dL Hemoglobin A1c 7.1 H (4.0-6.0) % Calcium (8.6-10.2) mg/dL Magnesium (1.8-2.5) mg/dL Total Bilirubin (0.1-1.3) mg/dL AST (5-27) IU/L ALT (14-26) IU/L Alkaline Phosphatase (56-112) IU/L Troponin I (0.02-0.06) NG/ML B-Natriuretic Peptide 98 (0-100) pg/mL Total Protein (6.0-8.0) g/dL Albumin (3.5-5.2) g/dL Globulin g/dL Albumin/Globulin Ratio TSH, Ultra Sensitive (0.4-5.5) nlU/mL 08/02/16 08/02/16 08/02/16 Range/Units 16:00 16:00 16:00 WBC (4.5-12.0) X10-3/uL RBC (4.30-5.75) x10(6)uL Hgb (11.5-15.5) g/dL Hct (30.0-51.3) % MCV (80-96) fL MCH (27.7-33.6) pg MCHC (32.2-35.4) g/dL RDW (11.5-15.5) % Plt Count (125-369) X10(3)uL MPV (7.4-10.4) fL Neut % (Auto) (46-82) % Lymph % (Auto) (13-37) % Gordon % (Auto) (4-12) % Eos % (Auto) (1.0-5.0) % Baso % (Auto) (0-2) % Neut # (Auto) (1.6-8.3) # Lymph # (Auto) (0.6-5.0) # Gordon # (Auto) (0.0-1.3) # Eos # (Auto) (0.0-0.8) # Baso # (Auto) (0.0-0.2) # Add Manual Diff Neutrophils % (Manual) (46-82) % Band Neutrophils % (0-6) % Lymphocytes % (Manual) (13-37) % Monocytes % (Manual) (4-12) % PT (8.7-11.1) INR (0.89-1.13) D-Dimer, Quantitative (100-400) ng/mL Sodium (135-145) mmol/L Potassium (3.5-5.3) mmol/L Chloride (100-110) mmol/L Carbon Dioxide (23-29) mmol/L BUN (5-20) mg/dL Creatinine (0.6-1.3) mg/dL Est Cr Clr Drug Dosing Estimated GFR (MDRD) (>60) BUN/Creatinine Ratio (9-20) Glucose (80-116) mg/dL Hemoglobin A1c (4.0-6.0) % Calcium (8.6-10.2) mg/dL Magnesium 2.1 (1.8-2.5) mg/dL Total Bilirubin (0.1-1.3) mg/dL AST (5-27) IU/L ALT (14-26) IU/L Alkaline Phosphatase (56-112) IU/L Troponin I < 0.01 L (0.02-0.06) NG/ML B-Natriuretic Peptide (0-100) pg/mL Total Protein (6.0-8.0) g/dL Albumin (3.5-5.2) g/dL Globulin g/dL Albumin/Globulin Ratio TSH, Ultra Sensitive 0.22 L (0.4-5.5) nlU/mL [place] Results Last 24 hrs: Microbiology 08/02/16 12:32 Group A Streptococcus Rapid Screen - Final Throat NEGATIVE STREP A SCREEN Orders Last 24hrs: Active Orders 24 hr Category Date Time Status CPAP Adult [RT BiPAP/CPAP] [RC] ASDIRECTED Care 08/02/16 13:58 Active Communication Order [RC] ASDIRECTED Care 08/02/16 14:11 Active Notify Provider [RC] PRN Care 08/02/16 14:11 Active RT Aerosol Therapy [RC] ASDIRECTED Care 08/02/16 16:22 Ordered RT Incentive Spirometry [RC] Q2HWA Care 08/02/16 14:11 Active Telemetry Monitoring [Cardiac Monitoring] [RC] .As Care 08/02/16 11:27 Active Directed Consult to Pharmacy [CONS] Routine Cons 08/02/16 14:11 Active Respiratory Care Assess and Treatment [CONS] Routine Cons 08/02/16 14:11 Active CBC WITH AUTO DIFF [HEME] AM Lab 08/03/16 05:11 Ordered COMPREHENSIVE METABOLIC PN,CMP [CHEM] AM Lab 08/03/16 05:11 Ordered CULTURE STREP A CONFIRMATION [RM] Stat Lab 08/02/16 12:32 Results GLYCOSYLATED HEMOGLOBIN,HGBA1C [CHEM] Routine Lab 08/02/16 09:25 Received INR,PT,PROTHROMBIN TIME [COAG] DAILY Lab 08/03/16 05:10 Ordered INR,PT,PROTHROMBIN TIME [COAG] DAILY Lab 08/04/16 05:10 Ordered INR,PT,PROTHROMBIN TIME [COAG] DAILY Lab 08/05/16 05:10 Ordered INR,PT,PROTHROMBIN TIME [COAG] DAILY Lab 08/06/16 05:10 Ordered INR,PT,PROTHROMBIN TIME [COAG] DAILY Lab 08/07/16 05:10 Ordered INR,PT,PROTHROMBIN TIME [COAG] DAILY Lab 08/08/16 05:10 Ordered MAGNESIUM [CHEM] Routine Lab 08/02/16 16:00 Ordered TROPONIN I [CHEM] Timed Lab 08/02/16 16:00 Ordered TSH ULTRASENSITIVE [CHEM] Timed Lab 08/02/16 16:00 Ordered Acetaminophen [Tylenol] Med 08/02/16 14:18 Ordered 650 mg PO Q4H PRN Albuterol/Ipratropium [DuoNeb 3.0-0.5 MG/3 ML] Med 08/02/16 18:00 Ordered 3 ml NEB QIDRT Allopurinol [Zyloprim] Med 08/03/16 09:00 Ordered 300 mg PO DAILY Digoxin [Digoxin] Med 08/03/16 09:00 Ordered 0.25 mg PO DAILY Enoxaparin [Lovenox] Med 08/02/16 21:00 Active 150 mg SUBCUT BID Gabapentin [Neurontin] Med 08/02/16 21:00 Ordered 600 mg PO BID Metoprolol Tartrate [Lopressor] Med 08/02/16 14:00 Active 25 mg PO Q6H Metoprolol Tartrate [Lopressor] Med 08/02/16 14:20 Active 5 mg IVPUSH Q4H PRN Metoprolol Tartrate [Lopressor] Med 08/02/16 21:00 Ordered 50 mg PO BID Omeprazole [Omeprazole] Med 08/02/16 17:30 Ordered 20 mg PO BIDAC Tetrahydrozoline HCl [Visine] Med 08/02/16 15:15 Ordered 1 drop EYEBOTH DAILY PRN Warfarin [Coumadin] Med 08/02/16 16:00 Ordered 10 mg PO SUTUWETHSA Warfarin [Coumadin] Med 08/05/16 16:00 Ordered 7.5 mg PO MOFR atorvaSTATin [Lipitor] Med 08/02/16 21:00 Ordered 20 mg PO BEDTIME metFORMIN [Glucophage] Med 08/02/16 18:00 Pending 500 mg PO BIDMEALS predniSONE Med 08/03/16 09:00 Active 40 mg PO DAILY rOPINIRole HCl [Requip] Med 08/02/16 21:00 Ordered 8 mg PO BEDTIME rOPINIRole [Requip] Med 08/02/16 21:00 Ordered 1 mg PO BEDTIME EKG 12 Lead [EK] Routine Ther 08/02/16 09:50 Ordered Medication Orders Albuterol/Ipratropium (Duoneb 3.0-0.5 Mg/3 Ml) 3 ml NEB QIDRT [place] Metformin HCl (Glucophage) 500 mg PO BIDMEALS [facility] Metoprolol Tartrate (Lopressor) 25 mg PO Q6H [place] Last Admin: 08/02/16 14:23 Dose: 25 mg Metoprolol Tartrate (Lopressor) 5 mg IVPUSH Q4H PRN PRN Reason: HR>120 bpm sustained 20 min Non-Formulary Medication (Acetaminophen [Tylenol]) 650 mg PO Q4H PRN PRN Reason: Pain Non-Formulary Medication (Allopurinol [Zyloprim]) 300 mg PO DAILY [facility] Non-Formulary Medication (Digoxin [Digoxin]) 0.25 mg PO DAILY [place] Non-Formulary Medication (Metoprolol Tartrate [Lopressor]) 50 mg PO BID [place] Non-Formulary Medication (Ropinirole [Requip]) 1 mg PO BEDTIME [place] (Enoxaparin [Lovenox (] 150 Mg) *Ptom) 150 mg SUBCUT BID [place] Non-Formulary Medication (Gabapentin [Neurontin]) 600 mg PO BID [place] Non-Formulary Medication (Tetrahydrozoline Hcl [Visine]) 1 drop EYEBOTH DAILY PRN PRN Reason: Dry Eyes Non-Formulary Medication (Atorvastatin [Lipitor]) 20 mg PO BEDTIME [place] Non-Formulary Medication (Ropinirole Hcl [Requip]) 8 mg PO BEDTIME [place] Non-Formulary Medication (Warfarin [Coumadin]) 10 mg PO SUTUWETHSA [place] Non-Formulary Medication (Warfarin [Coumadin]) 7.5 mg PO MOFR [place] Non-Formulary Medication (Omeprazole [Omeprazole]) 20 mg PO BIDAC [place] Ondansetron HCl (Zofran) 4 mg IV Q4H PRN PRN Reason: Nausea/Vomiting Prednisone (Prednisone) 40 mg PO DAILY [place] Sodium Chloride (Saline Flush) 10 ml FLUSH ASDIRECTED PRN PRN Reason: Keep Vein Open Last Admin: 08/02/16 10:30 Dose: 10 ml Admin: 08/02/16 10:29 Dose: 10 ml Sodium Chloride (Saline Flush) 10 ml FLUSH ASDIRECTED PRN PRN Reason: Keep Vein Open ASSESSMENT: Active/Suspected Problems Current Visit Only Table Problem Status Priority Anticoagulated on Coumadin Acute 8 Atrial fibrillation with RVR Acute 1 COPD (chronic obstructive pulmonary disease) Acute 3 Dyspnea Acute 2 Esophagitis Acute 11 Neck pain Acute 10 Neck swelling Acute 4 On bridging treatment with lovenox Acute 9 Post-operative state Acute 5 Presence of surgical incision Acute 12 S/P cervical spinal fusion Acute 6 Subtherapeutic anticoagulation Acute 7 Depressive disorder Chronic 15 Diabetes mellitus type 2 Chronic 13 Obesity Chronic 16 Sleep apnea Chronic 14 PLAN: will continue with hydration via IV and orals. cool packs to the neck intermittently. will begin titration of his low dose oral metoprolol up to effective dose with IV metoprolol for sustained rates >110 bp for 20 min. will add second agent if indicated. believe for now this is reactive RVR and do not want to complicate picture with addition of new home meds if not required. give warfarin 10 mg now. lovenox as scheduled at current dosing. will follow INRs. diet as tolerated. continuous tele. duonebs tid and prednisone 40 mg oral starting tomorrow for 5 day course. no indication for antibiotics. he will have his bring in his cpap for tonight. anticipate stay 24-48h with discharge to home. Total Time: 60 min with > 50% spent face to face with pt conducting interview, exam, debrief of findings, concerns, labs results, course of care and answering questions related to above.
[2016-08-03] MEDS ORDERED: Warfarin 5 MG Tab *PTOM PO SCH (21:00)
[2016-08-03 21:19] VITALS: BP 124/70
[2016-08-05] MEDS ORDERED: Warfarin 5 MG Tab PO SCH (21:00)
--- NOTE | 2016-08-23 15:25 | PCM.DCSUM1 ---
Discharge Summary - Hospital Course HPI Initial Comments: Admit: 08/02/2016 Discharge: 08/03/2016 Pleasant 56y male admitted with sudden onset dyspnea, sob, wheezing and swelling in the neck. came through ER. s/p recent cervical spinal fusion with right anterior neck surgical site. Discharged from [facility] 2 days prior. Hx of warfarin anticoag for chronic afib rate controlled with dig and low dose metoprolol. never in rhythm since sporatic onset while at work several years ago. no complications since that time and is being managed on warfarin by INR clinic without difficulty. Prior to and during procedure he is being bridge with lovenox sc bid. restarted his warfarin night before admission his usual schedule. his INR is subtherapeutic at 1.0. On presentation to ER. Sob and wheezing noted without hypoxia. given neb treatment and steroid burst which helped. Soft tissue neck films demonstrated swelling anterior cervical spine space as expected, with some displacement of the trachea. no evidence of abscess or hematoma no evidence of surgical complication. CT scan of the chest with negative for PE. no pneumonia on xray. some scarring and atalectasis. Incision healthy and intact. EKG consistent with afib in RVR up to 169-170s with improvement after dose of Cardizem. Placed in observation overnight and several started on metoprolol dosing titration to try to rate control with one agent as he had been on low dose prior. likey reactive rvr sp surgical however, unable to accomplish adequate sustained rate control with titration up to therapeutic levels. he remained assymptomatic with these rates at times up to 130-140s sustained and no evidence of fluid overload or near syncope with getting up and to the bathroom. Bp remained in target ranges. Began to show PVCs couplets with intermittent short burst on 1-2 beat of V-tach, again asymptomatic. No IV access due to difficult stick, even after anesthesia trial and will his now having need for further medical medical/IV management, the need to transfer to higher level of care with cardiology consultation required. Respiratory status continued to slightly improved with regards to wheezing and sob with duoneb an steroid. expected elevation in glucose and wbc as response. discussed case with hospitalist at [facility] where neck surgery performed, and with the films of the neck showing soft tissue swelling anterior to the surgical space with some displace of the trachea, would also like to have his surgeon re-evaluate for second opinion as well. Certainly his afib with rvr with need to be addressed given his recent surgical procedure, subtherapeutic INR, warfarin dosing, respiratory therapy and potential further procedures/ studies as warranted. Discussed all of this in detail with he and his at the bedside and they both agree to this plan of care. They understand that he will need to go by ambulance due to cardiac monitoring. they agree. Total time in discharge: 90 min, with >50% face to face with pt and conducting examination, debriefing of current medical situation and need for transfer as noted above. remainder reviewing chart, tele, ekg, films, labs coordination of cares between facilities. - Discharge Data Discharge Date: 08/03/16 Discharge Disposition: DC/Tfer to Acute Hospital 02 Condition: Good - Discharge Diagnosis/Problem(s) (1) Atrial fibrillation with RVR SNOMED Code(s): 912568457084632 ICD Code: I48.91 - UNSPECIFIED ATRIAL FIBRILLATION Status: Acute (2) Post-operative state SNOMED Code(s): 35928972 ICD Code: Z98.890 - OTHER SPECIFIED POSTPROCEDURAL STATES Status: Acute (3) Presence of surgical incision SNOMED Code(s): 699688247 ICD Code: Z78.9 - OTHER SPECIFIED HEALTH STATUS Status: Acute (4) Neck swelling SNOMED Code(s): 642000871 ICD Code: R22.1 - LOCALIZED SWELLING, MASS AND LUMP, NECK Status: Acute (5) On bridging treatment with lovenox SNOMED Code(s): 584870109, 090447949 ICD Code: Z79.01 - [employer] (CURRENT) USE OF ANTICOAGULANTS Status: Acute (6) Subtherapeutic anticoagulation SNOMED Code(s): 23677000 ICD Code: Z51.81 - ENCOUNTER FOR THERAPEUTIC DRUG LEVEL MONITORING; Z79.01 - [employer] (CURRENT) USE OF ANTICOAGULANTS Status: Acute (7) S/P cervical spinal fusion SNOMED Code(s): 0845087102391, 774479521, 5907059479347 ICD Code: Z98.1 - ARTHRODESIS STATUS Status: Acute (8) Anticoagulated on Coumadin SNOMED Code(s): 05820824 ICD Code: Z51.81 - ENCOUNTER FOR THERAPEUTIC DRUG LEVEL MONITORING; Z79.01 - SENIOR LIVING (CURRENT) USE OF ANTICOAGULANTS Status: Acute (9) Dyspnea SNOMED Code(s): 911177727 ICD Code: R06.00 - DYSPNEA, UNSPECIFIED Status: Acute (10) Asthma attack SNOMED Code(s): 181746227 ICD Code: J45.901 - UNSPECIFIED ASTHMA WITH (ACUTE) EXACERBATION Status: Acute (11) COPD (chronic obstructive pulmonary disease) SNOMED Code(s): 61700621 ICD Code: J44.9 - CHRONIC OBSTRUCTIVE PULMONARY DISEASE, UNSPECIFIED Status : Acute Qualifiers: COPD type: COPD with acute exacerbation Qualified Code(s): J44.1 - Chronic obstructive pulmonary disease with (acute) exacerbation (12) Esophagitis SNOMED Code(s): 08155288 ICD Code: K20.9 - ESOPHAGITIS, UNSPECIFIED Status: Acute (13) Neck pain SNOMED Code(s): 93668416 ICD Code: M54.2 - CERVICALGIA Status: Acute (14) Diabetes mellitus type 2 SNOMED Code(s): 24901944 ICD Code: E11.9 - TYPE 2 DIABETES MELLITUS WITHOUT COMPLICATIONS Status: Chronic (15) Depressive disorder SNOMED Code(s): 24898679 ICD Code: F32.9 - MAJOR DEPRESSIVE DISORDER, SINGLE EPISODE, UNSPECIFIED Status: Chronic Problem Details: Continue his meds (16) Afib, Atrial fibrillation SNOMED Code(s): 72277183 ICD Code: I48.91 - UNSPECIFIED ATRIAL FIBRILLATION Status: Chronic Problem Details: Continue regular meds,including Coumadin (17) Backache SNOMED Code(s): 108236812 ICD Code: M54.9 - DORSALGIA, UNSPECIFIED Status: Chronic Problem Details : Ketoralac for breakthrough pain.Regular meds (18) Obesity SNOMED Code(s): 622320342 ICD Code: E66.9 - OBESITY, UNSPECIFIED Status: Chronic (19) Sleep apnea SNOMED Code(s): 55572795 ICD Code: G47.30 - SLEEP APNEA, UNSPECIFIED Status: Chronic (20) Asthma SNOMED Code(s): 007766451 ICD Code: J45.909 - UNSPECIFIED ASTHMA, UNCOMPLICATED Status: Chronic - Patient Summary/Data Consults: Consultations 08/02/16 14:11 Consult to Pharmacy [CONS] Routine Comment: Physician Instructions: Quantity: Reason for Consult: warfarin dosing Respiratory Care Assess and Treatment [CONS] Routine Comment: Physician Instructions: - Discharge Plan Home Medications: Home Meds Albuterol Sulfate [Albuterol Sulfate HFA] 2 puff INH Q4HR PRN 03/06/14 [History] Allopurinol [Zyloprim] 300 mg PO DAILY 03/06/14 [History] Digoxin 0.25 mg PO DAILY 03/06/14 [History] Omeprazole 20 mg PO BIDAC 03/06/14 [History] Warfarin [Coumadin] 10 mg PO SUTUWETHSA 03/06/14 [History] Budesonide/Formoterol [Symbicort 160-4.5 MCG] 2 inhalation INH BID 04/13/15 [ History] Warfarin [Coumadin] 7.5 mg PO MOFR 01/05/16 [History] atorvaSTATin [Lipitor] 20 mg PO BEDTIME 01/05/16 [History] Acetaminophen [Tylenol] 650 mg PO Q4H PRN #0 tablet 01/06/16 [Rx] Metoprolol Tartrate [Lopressor] 50 mg PO BID tablet 01/06/16 [Rx] Enoxaparin [Lovenox] 150 mg SUBCUT BID 08/02/16 [History] Gabapentin [Neurontin] 600 mg PO BID 08/02/16 [History] Tetrahydrozoline HCl [Visine] 1 drop EYEBOTH DAILY PRN 08/02/16 [History] metFORMIN [Glucophage] 500 mg PO BID 08/02/16 [History] rOPINIRole HCl [Requip] 8 mg PO BEDTIME 08/02/16 [History] Forms: ED Department Discharge Referrals: PCP,Not In Area [Primary Care Provider] - - General Info Date of Service: 08/03/16 Functional Status: Reports: pain controlled, tolerating diet, ambulating, urinating, incentive spirometry - Review of Systems General: Reports: Fatigue HEENT: Reports: sore throat Pulmonary: Reports: wheezing Cardiovascular: Reports: Palpitations Gastrointestinal: Reports: No symptoms Genitourinary: Reports: no symptoms Musculoskeletal: Reports: no symptoms Skin: Reports: other (neck incision without increased pain or swelling. no drainage.) Neurological: Reports: No Symptoms Psychiatric: Reports: no symptoms - Patient Data Vitals - Most Recent: Last Vital Signs Temp 98.2 F 08/03/16 20:00 Pulse 104 H 08/03/16 20:00 Resp 18 08/03/16 20:00 BP 124/70 08/03/16 20:00 Pulse Ox 95 08/03/16 20:00 Weight - Most Recent: 155.667 kg Lab Results - Last 24 hrs: Laboratory Tests 08/02/16 08/02/16 08/02/16 Range/Units 09:25 09:25 09:25 WBC 8.8 (4.5-12.0) X10-3/uL RBC 5.36 (4.30-5.75) x10(6)uL Hgb 15.2 (11.5-15.5) g/dL Hct 46.4 (30.0-51.3) % MCV 86.4 (80-96) fL MCH 28.3 (27.7-33.6) pg MCHC 32.8 (32.2-35.4) g/dL RDW 14.3 (11.5-15.5) % Plt Count 173 (125-369) X10(3)uL MPV 9.5 (7.4-10.4) fL Neut % (Auto) 71.0 (46-82) % Lymph % (Auto) 17.6 (13-37) % Geary % (Auto) 8.2 (4-12) % Eos % (Auto) 1 (1.0-5.0) % Baso % (Auto) 3 H (0-2) % Neut # (Auto) 6.3 (1.6-8.3) # Lymph # (Auto) 1.5 (0.6-5.0) # Geary # (Auto) 0.7 (0.0-1.3) # Eos # (Auto) 0.1 (0.0-0.8) # Baso # (Auto) 0.2 (0.0-0.2) # Add Manual Diff Neutrophils % (Manual) (46-82) % Band Neutrophils % (0-6) % Lymphocytes % (Manual) (13-37) % Monocytes % (Manual) (4-12) % PT (8.7-11.1) INR (0.89-1.13) D-Dimer, Quantitative 306 (100-400) ng/mL Sodium 134 L (135-145) mmol/L Potassium 4.2 (3.5-5.3) mmol/L Chloride 99 L (100-110) mmol/L Carbon Dioxide 24 (23-29) mmol/L BUN 15 (5-20) mg/dL Creatinine 1.0 (0.6-1.3) mg/dL Est Cr Clr Drug Dosing TNP Estimated GFR (MDRD) > 60 (>60) BUN/Creatinine Ratio 15.0 (9-20) Glucose 208 H (80-116) mg/dL Hemoglobin A1c (4.0-6.0) % Calcium 9.0 (8.6-10.2) mg/dL Magnesium (1.8-2.5) mg/dL Total Bilirubin (0.1-1.3) mg/dL AST (5-27) IU/L ALT (14-26) IU/L Alkaline Phosphatase (56-112) IU/L Troponin I (0.02-0.06) NG/ML B-Natriuretic Peptide (0-100) pg/mL Total Protein (6.0-8.0) g/dL Albumin (3.5-5.2) g/dL Globulin g/dL Albumin/Globulin Ratio TSH, Ultra Sensitive (0.4-5.5) nlU/mL 08/02/16 08/02/16 08/02/16 Range/Units 09:25 09:25 10:00 WBC (4.5-12.0) X10-3/uL RBC (4.30-5.75) x10(6)uL Hgb (11.5-15.5) g/dL Hct (30.0-51.3) % MCV (80-96) fL MCH (27.7-33.6) pg MCHC (32.2-35.4) g/dL RDW (11.5-15.5) % Plt Count (125-369) X10(3)uL MPV (7.4-10.4) fL Neut % (Auto) (46-82) % Lymph % (Auto) (13-37) % Geary % (Auto) (4-12) % Eos % (Auto) (1.0-5.0) % Baso % (Auto) (0-2) % Neut # (Auto) (1.6-8.3) # Lymph # (Auto) (0.6-5.0) # Geary # (Auto) (0.0-1.3) # Eos # (Auto) (0.0-0.8) # Baso # (Auto) (0.0-0.2) # Add Manual Diff Neutrophils % (Manual) (46-82) % Band Neutrophils % (0-6) % Lymphocytes % (Manual) (13-37) % Monocytes % (Manual) (4-12) % PT 10.6 (8.7-11.1) INR 1.05 (0.89-1.13) D-Dimer, Quantitative (100-400) ng/mL Sodium (135-145) mmol/L Potassium (3.5-5.3) mmol/L Chloride (100-110) mmol/L Carbon Dioxide (23-29) mmol/L BUN (5-20) mg/dL Creatinine (0.6-1.3) mg/dL Est Cr Clr Drug Dosing Estimated GFR (MDRD) (>60) BUN/Creatinine Ratio (9-20) Glucose (80-116) mg/dL Hemoglobin A1c 7.1 H (4.0-6.0) % Calcium (8.6-10.2) mg/dL Magnesium (1.8-2.5) mg/dL Total Bilirubin (0.1-1.3) mg/dL AST (5-27) IU/L ALT (14-26) IU/L Alkaline Phosphatase (56-112) IU/L Troponin I (0.02-0.06) NG/ML B-Natriuretic Peptide 98 (0-100) pg/mL Total Protein (6.0-8.0) g/dL Albumin (3.5-5.2) g/dL Globulin g/dL Albumin/Globulin Ratio TSH, Ultra Sensitive (0.4-5.5) nlU/mL 08/02/16 08/02/16 08/02/16 Range/Units 16:00 16:00 16:00 WBC (4.5-12.0) X10-3/uL RBC (4.30-5.75) x10(6)uL Hgb (11.5-15.5) g/dL Hct (30.0-51.3) % MCV (80-96) fL MCH (27.7-33.6) pg MCHC (32.2-35.4) g/dL RDW (11.5-15.5) % Plt Count (125-369) X10(3)uL MPV (7.4-10.4) fL Neut % (Auto) (46-82) % Lymph % (Auto) (13-37) % Geary % (Auto) (4-12) % Eos % (Auto) (1.0-5.0) % Baso % (Auto) (0-2) % Neut # (Auto) (1.6-8.3) # Lymph # (Auto) (0.6-5.0) # Geary # (Auto) (0.0-1.3) # Eos # (Auto) (0.0-0.8) # Baso # (Auto) (0.0-0.2) # Add Manual Diff Neutrophils % (Manual) (46-82) % Band Neutrophils % (0-6) % Lymphocytes % (Manual) (13-37) % Monocytes % (Manual) (4-12) % PT (8.7-11.1) INR (0.89-1.13) D-Dimer, Quantitative (100-400) ng/mL Sodium (135-145) mmol/L Potassium (3.5-5.3) mmol/L Chloride (100-110) mmol/L Carbon Dioxide (23-29) mmol/L BUN (5-20) mg/dL Creatinine (0.6-1.3) mg/dL Est Cr Clr Drug Dosing Estimated GFR (MDRD) (>60) BUN/Creatinine Ratio (9-20) Glucose (80-116) mg/dL Hemoglobin A1c (4.0-6.0) % Calcium (8.6-10.2) mg/dL Magnesium 2.1 (1.8-2.5) mg/dL Total Bilirubin (0.1-1.3) mg/dL AST (5-27) IU/L ALT (14-26) IU/L Alkaline Phosphatase (56-112) IU/L Troponin I < 0.01 L (0.02-0.06) NG/ML B-Natriuretic Peptide (0-100) pg/mL Total Protein (6.0-8.0) g/dL Albumin (3.5-5.2) g/dL Globulin g/dL Albumin/Globulin Ratio TSH, Ultra Sensitive 0.22 L (0.4-5.5) nlU/mL 08/03/16 08/03/16 08/03/16 Range/Units 06:04 06:04 06:04 WBC 13.5 H (4.5-12.0) X10-3/uL RBC 5.27 (4.30-5.75) x10(6)uL Hgb 15.0 (11.5-15.5) g/dL Hct 45.2 (30.0-51.3) % MCV 85.8 (80-96) fL MCH 28.5 (27.7-33.6) pg MCHC 33.3 (32.2-35.4) g/dL RDW 14.5 (11.5-15.5) % Plt Count 187 (125-369) X10(3)uL MPV 10.3 (7.4-10.4) fL Neut % (Auto) (46-82) % Lymph % (Auto) (13-37) % Geary % (Auto) (4-12) % Eos % (Auto) (1.0-5.0) % Baso % (Auto) (0-2) % Neut # (Auto) (1.6-8.3) # Lymph # (Auto) (0.6-5.0) # Geary # (Auto) (0.0-1.3) # Eos # (Auto) (0.0-0.8) # Baso # (Auto) (0.0-0.2) # Add Manual Diff Yes Neutrophils % (Manual) 79 (46-82) % Band Neutrophils % 1 (0-6) % Lymphocytes % (Manual) 13 (13-37) % Monocytes % (Manual) 7 (4-12) % PT 10.9 (8.7-11.1) INR 1.08 (0.89-1.13) D-Dimer, Quantitative (100-400) ng/mL Sodium 133 L (135-145) mmol/L Potassium 4.3 (3.5-5.3) mmol/L Chloride 102 (100-110) mmol/L Carbon Dioxide 25 (23-29) mmol/L BUN 16 (5-20) mg/dL Creatinine 0.9 (0.6-1.3) mg/dL Est Cr Clr Drug Dosing 119.89 Estimated GFR (MDRD) > 60 (>60) BUN/Creatinine Ratio 17.8 (9-20) Glucose 224 H (80-116) mg/dL Hemoglobin A1c (4.0-6.0) % Calcium 8.8 (8.6-10.2) mg/dL Magnesium (1.8-2.5) mg/dL Total Bilirubin 0.7 (0.1-1.3) mg/dL AST 19 D (5-27) IU/L ALT 25 D (14-26) IU/L Alkaline Phosphatase 55 L (56-112) IU/L Troponin I (0.02-0.06) NG/ML B-Natriuretic Peptide (0-100) pg/mL Total Protein 6.8 (6.0-8.0) g/dL Albumin 3.6 (3.5-5.2) g/dL Globulin 3.2 g/dL Albumin/Globulin Ratio 1.1 TSH, Ultra Sensitive (0.4-5.5) nlU/mL DOMINIC Results - Last 24 hrs: Microbiology 08/02/16 12:32 Throat Quick Strep Confirmation Culture - Final NO GROUP A STREP ISOLATED 08/02/16 12:32 Throat Group A Streptococcus Rapid Screen - Final NEGATIVE STREP A SCREEN Med Orders - Current: Current Medications Discontinued Medications Acetaminophen (Tylenol) 650 mg PO Q4H PRN PRN Reason: Pain Hydrocodone Bitart/Acetaminophen ([place] 325-5 Mg) 1 tab PO Q4H PRN PRN Reason: pain >5/10 Al Hydroxide/Mg Hydroxide (Mag-Al Susp) 30 ml PO Q2H PRN PRN Reason: Heartburn Last Admin: 08/02/16 20:51 Dose: 30 ml Albuterol/Ipratropium (Duoneb 3.0-0.5 Mg/3 Ml) 3 ml NEB ONETIME ONE Stop: 08/02/16 09:11 Last Admin: 08/02/16 09:14 Dose: 3 ml Albuterol/Ipratropium (Duoneb 3.0-0.5 Mg/3 Ml) 3 ml NEB QIDRT [place] Last Admin: 08/03/16 15:09 Dose: 3 ml Allopurinol (Zyloprim) 300 mg PO DAILY [facility] Last Admin: 08/03/16 10:09 Dose: 300 mg Atorvastatin Calcium (Lipitor) 20 mg PO BEDTIME [facility] Last Admin: 08/02/16 21:38 Dose: 20 mg Digoxin (Lanoxin) 250 mcg PO DAILY [facility] Last Admin: 08/03/16 10:08 Dose: 250 mcg Diltiazem HCl (Diltiazem) 20 mg IVPUSH ONETIME ONE Stop: 08/02/16 10:02 Last Admin: 08/02/16 10:25 Dose: 20 mg Gabapentin (Neurontin) 600 mg PO BID [facility] Last Admin: 08/03/16 10:08 Dose: 600 mg Potassium Chloride/Sodium Chloride (Normal Saline With 20 Meq Kcl) 1,000 mls @ 250 mls/hr IV ASDIRECTED [facility] Stop: 08/02/16 21:14 Last Admin: 08/02/16 18:43 Dose: 250 mls/hr Potassium Chloride/Sodium Chloride (Normal Saline With 20 Meq Kcl) 1,000 mls @ 125 mls/hr IV ASDIRECTED [facility] Last Admin: 08/03/16 00:19 Dose: 125 mls/hr Metformin HCl (Glucophage) 500 mg PO BID [facility] Last Admin: 08/03/16 10:07 Dose: 500 mg Methylprednisolone Sodium Succinate (Solu-Medrol) 125 mg IVPUSH ONETIME ONE Stop: 08/02/16 09:11 Last Admin: 08/02/16 10:20 Dose: 125 mg Metoprolol Tartrate (Lopressor) 25 mg PO Q6H [facility] Last Admin: 08/02/16 14:23 Dose: 25 mg Metoprolol Tartrate (Lopressor) 50 mg PO BID [facility] Metoprolol Tartrate (Lopressor) 5 mg IVPUSH Q4H PRN PRN Reason: HR>120 bpm sustained 20 min Metoprolol Tartrate (Lopressor) 75 mg PO BID [facility] Last Admin: 08/02/16 21:38 Dose: 75 mg Metoprolol Tartrate (Lopressor) 50 mg PO ONETIME ONE Stop: 08/02/16 18:37 Last Admin: 08/02/16 18:55 Dose: 50 mg Metoprolol Tartrate (Lopressor) 100 mg PO Q12H [facility] Last Admin: 08/03/16 07:55 Dose: 100 mg Metoprolol Tartrate (Lopressor) 150 mg PO BID [facility] Last Admin: 08/03/16 18:32 Dose: 150 mg (Enoxaparin [Lovenox (] 150 Mg) *Ptom) 150 mg SUBCUT BID [facility] Last Admin: 08/03/16 10:06 Dose: 150 mg Non-Formulary Medication (Tetrahydrozoline Hcl [Visine]) 1 drop EYEBOTH DAILY PRN PRN Reason: Dry Eyes Omeprazole (Omeprazole) 20 mg PO BID@0600,1730 [facility] Last Admin: 08/03/16 16:45 Dose: 20 mg Ondansetron HCl (Zofran) 4 mg IV Q4H PRN PRN Reason: Nausea/Vomiting Prednisone (Prednisone) 40 mg PO DAILY [facility] Last Admin: 08/03/16 10:09 Dose: 40 mg Ropinirole HCl (Requip) 8 mg PO BEDTIME [facility] Last Admin: 08/02/16 21:40 Dose: 8 mg Sodium Chloride (Saline Flush) 10 ml FLUSH ASDIRECTED PRN PRN Reason: Keep Vein Open Last Admin: 08/02/16 10:30 Dose: 10 ml Sodium Chloride (Saline Flush) 10 ml FLUSH ASDIRECTED PRN PRN Reason: Keep Vein Open Warfarin Sodium (Coumadin) 10 mg PO SuTuWeThSa@1600 [facility] Last Admin: 08/02/16 21:36 Dose: 10 mg Warfarin Sodium (Coumadin) 7.5 mg PO MoFr@2100 [place] Warfarin Sodium (Coumadin) 10 mg PO SuTuWeThSa@2100 [facility] - Exam Quality Assessment: Reports: DVT prophylaxis General: Reports: alert, oriented, cooperative, no acute distress HEENT: Reports: Mucous membr. moist/pink Neck: Reports: supple, no JVD, +2 carotid pulse wo bruit, other (full ROM) Lungs: Reports: Normal respiratory effort, Decreased breath sounds, Wheezing. Denies: Rales, Rhonchi Cardiovascular: Reports: Irregular Rhythm, Tachycardia. Denies: Murmurs GI/Abdominal Exam: Normal Bowel Sounds, Soft, Non-Tender Back Exam: Reports: Normal Inspection Extremities: Normal Range of Motion, Normal Capillary Refill. No: Arm Pain, Leg Pain Skin: Reports: warm, dry Wound/Incisions: Reports: healing well (right anterior neck; sutures healthy.), no drainage Neurological: Reports: no new focal deficit, normal gait, normal speech, normal tone, strength equal bilateral, cranial nerves intact Psy/Mental Status: Reports: alert, normal affect, normal mood *Q Meaningful Use (DIS) - VTE *Q VTE Criteria *Q: - Stroke *Q Stroke Criteria *Q: - AMI *Q AMI Criteria *Q:
== END 2016-08-03 20:23 ==
LOC: FB.ED 08:59 → FB.MS 11:19 → UNDOADMOB 12:02
PROVIDERS: ADMIT Family Medicine; ATTEND Family Medicine
DX: J44.1 Chronic obstructive pulmonary disease with (acute) exacerbation (principal); I10 Essential (primary) hypertension; G47.30 Sleep apnea, unspecified; E11.21 Type 2 diabetes mellitus with diabetic nephropathy; Z79.84 Long term (current) use of oral hypoglycemic drugs; F32.9 Major depressive disorder, single episode, unspecified; E11.42 Type 2 diabetes mellitus with diabetic polyneuropathy; Z79.01 Long term (current) use of anticoagulants; Z79.899 Other long term (current) drug therapy; Z98.890 Other specified postprocedural states; Z87.891 Personal history of nicotine dependence
CPT/HCPCS: 36410; 36415; 70360; 71020; 80048; 80053; 83036; 83735; 83880; 84443; 84484; 85025; 85379; 85610; 87081; 87430; 93005; 94150; 94640; 96365; 96366; 96372; 96374; 96375; 99285; A9270; G0378; J2930; J3480; J7050; J7620; 99217; J3490

== ENCOUNTER 2016-10-17 10:14 | Emergency (ER) | payer MEDICARE, OTHER ==
[2016-10-17] MEDS ORDERED: Albuterol 0.083% 2.5 MG/3 ML Neb Soln NEB ONE (10:34)
--- NOTE | 2016-10-17 10:41 | EDM.PDOC ---
ED HPI GENERAL MEDICAL PROBLEM - General Chief Complaint: Respiratory Problem Stated Complaint: TROUBLE BREATHING Time Seen by Provider: 10/17/16 10:25 Source of Information: Reports: Patient, Old Records History Limitations: Reports: No Limitations - History of Present Illness INITIAL COMMENTS - FREE TEXT/NARRATIVE: 56 yo former smoker[facility] with several days of BREWSTER. Gets transient relief using his nebulizers, last use was a Duoneb at 9 am today. No fever. Legs not more swollen than usual. Has not contacted his provider. Has a Hx of Afib. Breathing well at rest. Mild orthopnea in that he coughs more with lying. Has mild, intermittent upper L chest pains as well. Onset: Gradual Onset Date: 10/14/16 Duration: Day(s):, Waxing/Waning Location: Reports: Chest Quality: Reports: Sharp Severity: Mild Improves with: Reports: None Worsens with: Reports: None Context: Reports: Other (Hx of emphysema) Associated Symptoms: Reports: Chest Pain, Cough, Shortness of Breath. Denies: Fever/Chills Treatments ALTERNATIVE MEDICINE PRACTITIONER: Reports: Other (see below) (Duoneb at 9 am today.) Mid-Sternal Pain Score (Numeric/FACES): 6 - Related Data Allergies Allergy/AdvReac Type Severity Reaction Status Date / Time No Known Allergies Allergy Verified 08/02/16 09:39 Home Meds: Home Meds Albuterol Sulfate [Albuterol Sulfate HFA] 2 puff INH Q4HR PRN 03/06/14 [History] Allopurinol [Zyloprim] 300 mg PO DAILY 03/06/14 [History] Omeprazole 20 mg PO BIDAC 03/06/14 [History] Budesonide/Formoterol [Symbicort 160-4.5 MCG] 2 inhalation INH BID 04/13/15 [ History] atorvaSTATin [Lipitor] 20 mg PO BEDTIME 01/05/16 [History] Acetaminophen [Tylenol] 650 mg PO Q4H PRN #0 tablet 01/06/16 [Rx] Tetrahydrozoline HCl [Visine] 1 drop EYEBOTH DAILY PRN 08/02/16 [History] metFORMIN [Glucophage] 1,000 mg PO BID 08/02/16 [History] Dabigatran [Pradaxa] 150 mg PO BID 10/17/16 [History] Prednisone [IJD: Prednisone] 20 mg PO BID #30 tab 10/17/16 [Rx] Pregabalin [Lyrica] 100 mg PO BID 10/17/16 [History] Sotalol [Betapace, Sorine] 80 mg PO BID 10/17/16 [History] Past Medical History Cardiovascular History: Reports: Afib, Hypertension, SOB on Exertion Respiratory History: Reports: COPD, Pneumonia, Recurrent Other Respiratory History: uses CPAP and has sleep apnea Gastrointestinal History: Reports: Irritable Bowel Syndrome Other Gastrointestinal History: diverticulitis Genitourinary History: Reports: Diabetic Nephropathy Musculoskeletal History: Reports: Fracture, Osteoarthritis Neurological History: Reports: Concussion, Neuropathy, Diabetic, Neuropathy, Peripheral Psychiatric History: Reports: ADD, Depression Endocrine/Metabolic History: Reports: Diabetes, Type II - Infectious Disease History Infectious Disease History: Reports: Chicken Pox, Measles, Shingles - Past Surgical History HEENT Surgical History: Reports: Tonsillectomy GI Surgical History: Reports: Hernia Repair/Other Musculoskeletal Surgical History: Reports: Arthroscopic Knee, Other (See Below) Social & Family History - Family History Family Medical History: Noncontributory - Tobacco Use Smoking Status *Q: Former Smoker Years of Tobacco use: 20 Packs/Tins Daily: 2 Used Tobacco, but Quit: Yes Month Tobacco Last Used: quit 2 years ago Second Hand Smoke Exposure: No - Caffeine Use Caffeine Use: Reports: Coffee, Tea Other Caffeine Use: 2 cups per day - Alcohol Use Days Per Week of Alcohol Use: 0 - Recreational Drug Use Recreational Drug Use: No ED ROS GENERAL - Review of Systems Review Of Systems: See Below Constitutional: Denies: Fever, Chills HEENT: Reports: No Symptoms Respiratory: Reports: Shortness of Breath, Pleuritic Chest Pain, Cough. Denies : Sputum, Hemoptysis Cardiovascular: Reports: Chest Pain Endocrine: Reports: No Symptoms GI/Abdominal: Reports: No Symptoms : Reports: No Symptoms Musculoskeletal: Reports: No Symptoms Skin: Reports: No Symptoms Neurological: Reports: No Symptoms Psychiatric: Reports: No Symptoms ED EXAM, GENERAL - Physical Exam Exam: See Below Exam Limited By: No Limitations General Appearance: Alert, WD/WN, No Apparent Distress, Obese Eye Exam: Bilateral Eye: Normal Inspection Ears: Normal External Exam, Normal Canal, Hearing Grossly Normal, Normal TMs Ear Exam: Bilateral Ear: Auricle Normal Nose: Normal Inspection, Normal Mucosa, No Blood Throat/Mouth: Normal Inspection, Normal Lips, Normal Teeth, Normal Oropharynx, Normal Voice, No Airway Compromise Head: Atraumatic, Normocephalic Neck: Normal Inspection Respiratory/Chest: Decreased Breath Sounds Cardiovascular: Regular Rate, Rhythm, Other (Bilateral trace LE edema) GI/Abdominal: Normal Bowel Sounds, Soft, Non-Tender, No Distention Back Exam: Normal Inspection. No: CVA Tenderness (R), CVA Tenderness (L) Extremities: Pedal Edema (Trace bilaterally below the knees.) Neurological: Alert, Oriented, CN II-XII Intact, Normal Cognition, No Motor/ Sensory Deficits Psychiatric: Normal Affect, Normal Mood Skin Exam: Warm, Dry, Intact, Normal Color, No Rash Lymphatic: No Adenopathy Course - Vital Signs Text/Narrative:: Minimal improvement in peak flow readings after albuterol neb. Last Recorded V/S: Last Vital Signs Temp 36.5 C 10/17/16 10:18 Pulse 68 10/17/16 10:45 Resp 18 10/17/16 10:18 BP 149/98 H 10/17/16 10:18 Pulse Ox 98 10/17/16 10:45 - Orders/Labs/Meds Orders: Active Orders 24 hr Category Date Time Status RT Aerosol Therapy [RC] ASDIRECTED Care 10/17/16 10:35 Active RT Peak Flow Measurement [RC] ASDIRECTED Care 10/17/16 10:34 Active Labs: Laboratory Tests 10/17/16 10/17/16 10/17/16 Range/Units 10:50 10:50 10:50 WBC 8.5 (4.5-12.0) X10-3/uL RBC 4.76 (4.30-5.75) x10(6)uL Hgb 13.8 (11.5-15.5) g/dL Hct 41.0 (30.0-51.3) % MCV 86.1 (80-96) fL MCH 29.1 (27.7-33.6) pg MCHC 33.8 (32.2-35.4) g/dL RDW 14.2 (11.5-15.5) % Plt Count 167 (125-369) X10(3)uL Sodium 137 (135-145) mmol/L Potassium 4.4 (3.5-5.3) mmol/L Chloride 108 D (100-110) mmol/L Carbon Dioxide 21 L (23-29) mmol/L BUN 18 (5-20) mg/dL Creatinine 1.1 (0.6-1.3) mg/dL Est Cr Clr Drug Dosing TNP Estimated GFR (MDRD) > 60 (>60) BUN/Creatinine Ratio 16.4 (9-20) Glucose 127 H D (80-116) mg/dL Calcium 9.0 (8.6-10.2) mg/dL Troponin I (0.02-0.06) NG/ML B-Natriuretic Peptide 125 H (0-100) pg/mL 10/17/16 Range/Units 10:50 WBC (4.5-12.0) X10-3/uL RBC (4.30-5.75) x10(6)uL Hgb (11.5-15.5) g/dL Hct (30.0-51.3) % MCV (80-96) fL MCH (27.7-33.6) pg MCHC (32.2-35.4) g/dL RDW (11.5-15.5) % Plt Count (125-369) X10(3)uL Sodium (135-145) mmol/L Potassium (3.5-5.3) mmol/L Chloride (100-110) mmol/L Carbon Dioxide (23-29) mmol/L BUN (5-20) mg/dL Creatinine (0.6-1.3) mg/dL Est Cr Clr Drug Dosing Estimated GFR (MDRD) (>60) BUN/Creatinine Ratio (9-20) Glucose (80-116) mg/dL Calcium (8.6-10.2) mg/dL Troponin I < 0.01 L (0.02-0.06) NG/ML B-Natriuretic Peptide (0-100) pg/mL Meds: Medications Discontinued Medications Generic Name Dose Route Start Last Admin Trade Name Freq PRN Reason Stop Dose Admin Albuterol 2.5 mg 10/17/16 10:34 10/17/16 10:42 Proventil Neb Soln NEB 10/17/16 10:35 2.5 mg ONETIME ONE Administration Departure - Departure Time of Disposition: 11:44 Disposition: Home, Self-Care 01 Condition: Fair Clinical Impression: Emphysema lung Qualifiers: Emphysema type: unspecified Qualified Code(s): J43.9 - Emphysema, unspecified - Discharge Information Prescriptions: Prednisone [IJD: Prednisone] 20 mg PO BID #30 tab Forms: ED Department Discharge Additional Instructions: Take prednisone as directed. Continue all your other meds as currently. Recheck with your doctor within the week, call for an appt. Return as needed. - My Orders Last 24 Hours: My Active Orders 10/17/16 10:34 RT Peak Flow Measurement [RC] ASDIRECTED 10/17/16 10:35 RT Aerosol Therapy [RC] ASDIRECTED - Assessment/Plan Last 24 Hours: My Active Orders 10/17/16 10:34 RT Peak Flow Measurement [RC] ASDIRECTED 10/17/16 10:35 RT Aerosol Therapy [RC] ASDIRECTED
[2016-10-17 11:09] VITALS: BP 149/98
== END 2016-10-17 12:11 | disposition home or self-care (01) ==
LOC: FB.ED 10:14
DX: J43.9 Emphysema, unspecified (principal); I48.91 Unspecified atrial fibrillation; M19.90 Unspecified osteoarthritis, unspecified site; E11.40 Type 2 diabetes mellitus with diabetic neuropathy, unspecified; E11.21 Type 2 diabetes mellitus with diabetic nephropathy; I10 Essential (primary) hypertension; Z79.84 Long term (current) use of oral hypoglycemic drugs; Z79.899 Other long term (current) drug therapy; Z87.01 Personal history of pneumonia (recurrent); Z87.891 Personal history of nicotine dependence
CPT/HCPCS: 36415; 80048; 83880; 84484; 85027; 94664; 99284

== ENCOUNTER 2019-02-02 11:54 | Inpatient (IN) | payer OTHER, MEDICARE ==
--- NOTE | 2019-02-02 12:48 | EDM.PDOC ---
ED HPI GENERAL MEDICAL PROBLEM - General Stated Complaint: DIZZY Time Seen by Provider: 02/02/19 12:35 Source of Information: Reports: Patient History Limitations: Reports: No Limitations - History of Present Illness INITIAL COMMENTS - FREE TEXT/NARRATIVE: 58-year-old male who reports 4-5 days ago he was sitting down and went to get up and he had an onset of room spinning dizziness and he sat back down and after. At time the dizziness seemed to paulo however, he has persisted with intermittent episodes of room spinning dizziness that do seem to be brought on with changing position or movement but at times has seemed to come on with no provocation. He has had nausea with this dizziness but no vomiting. He has had some slight diaphoresis associated with these episodes of dizziness. He has had no headache. He has had no localized area of weakness or numbness. No fevers. No cough. No change in his hearing. No ear discharge. No nasal congestion. He has fallen several times secondary to the dizziness. No head trauma. No chest or abdominal pain. In fact, he has had no pain. He rates his pain as a 0/10. He has had decreased oral intake secondary to the nausea. He has not taken his medications yet this morning. There are no other associated signs or symptoms. There are no other modifying factors. Onset: Other (4-5 days ago) Duration: Constant Location: Reports: Other (No pain. Just dizziness.) Quality: Reports: Other (Not applicable) Severity: Moderate (to severe--dizziness) Improves with: Reports: Rest Worsens with: Reports: Movement Context: Reports: Other (As above) Associated Symptoms: Reports: No Other Symptoms (Except as above) Treatments [employer]ELOPER: Reports: Other (see below) (Nothing.) - Related Data Allergies Allergy/AdvReac Type Severity Reaction Status Date / Time No Known Allergies Allergy Verified 08/02/16 09:39 Home Meds: Home Meds Albuterol Sulfate [Albuterol Sulfate HFA] 2 puff INH Q4HR PRN 03/06/14 [History] Omeprazole 20 mg PO BIDAC 03/06/14 [History] allopurinoL [Zyloprim] 300 mg PO DAILY 03/06/14 [History] Budesonide/Formoterol [Symbicort 160-4.5 MCG] 2 inhalation INH BID 04/13/15 [ History] atorvaSTATin [Lipitor] 20 mg PO BEDTIME 01/05/16 [History] Acetaminophen [Tylenol] 650 mg PO Q4H PRN #0 tablet 01/06/16 [Rx] Tetrahydrozoline HCl [Visine] 1 drop EYEBOTH DAILY PRN 08/02/16 [History] metFORMIN [Glucophage] 1,000 mg PO BID 08/02/16 [History] Dabigatran [Pradaxa] 150 mg PO BID 10/17/16 [History] Prednisone [IJD: Prednisone] 20 mg PO BID #30 tab 10/17/16 [Rx] Pregabalin [Lyrica] 100 mg PO BID 10/17/16 [History] Sotalol [Betapace, Sorine] 80 mg PO BID 10/17/16 [History] Past Medical History Cardiovascular History: Reports: Afib, Hypertension, SOB on Exertion Respiratory History: Reports: COPD, Pneumonia, Recurrent Other Respiratory History: uses CPAP and has sleep apnea Gastrointestinal History: Reports: Diverticulosis (With bouts of diverticulitis) , Irritable Bowel Syndrome Genitourinary History: Reports: Diabetic Nephropathy Musculoskeletal History: Reports: Fracture, Osteoarthritis Neurological History: Reports: Concussion, Neuropathy, Diabetic, Neuropathy, Peripheral Psychiatric History: Reports: ADD, Depression Endocrine/Metabolic History: Reports: Diabetes, Type II Hematologic History: Reports: Anticoagulation Therapy (On Eliquis) - Infectious Disease History Infectious Disease History: Reports: Chicken Pox, Measles, Shingles - Past Surgical History HEENT Surgical History: Reports: Tonsillectomy Cardiovascular Surgical History: Reports: Other (See Below) (Cardiac catheterization with reported normal coronary arteries per the patient.) GI Surgical History: Reports: Hernia Repair/Other Musculoskeletal Surgical History: Reports: Arthroscopic Knee Social & Family History - Tobacco Use Smoking Status *Q: Former Smoker (Quit about 6 years ago.) - Caffeine Use Caffeine Use: Reports: Coffee, Tea Other Caffeine Use: 2 cups per day - Alcohol Use Alcohol Use History: No Alcohol Use Comment: No alcohol use for the past 2 years. - Living Situation & Occupation Living situation: Reports: ED ROS GENERAL - Review of Systems Review Of Systems: See Below Constitutional: Reports: No Symptoms HEENT: Reports: No Symptoms Respiratory: Reports: No Symptoms Cardiovascular: Reports: No Symptoms GI/Abdominal: Reports: Nausea. Denies: Vomiting : Reports: No Symptoms Musculoskeletal: Reports: No Symptoms Skin: Reports: Diaphoresis (Intermittent with these episodes of dizziness) Neurological: Reports: Dizziness. Denies: Headache, Paresthesia, Weakness Hematologic/Lymphatic: Reports: Easy Bleeding (Patient is on Eliquis) Immunologic: Reports: No Symptoms ED EXAM, DIZZINESS - Physical Exam Exam: See Below Exam Limited By: No Limitations General Appearance: Alert, Moderate Distress, Obese Eye Exam: Bilateral Eye: Abnormal EOM (Some lateral gaze nystagmus at less than 45 bilaterally), Normal Inspection, PERRL Nystagmus: reproducible, short duration Ears: Normal External Exam, Hearing Grossly Normal Nose: Normal Inspection, Normal Mucosa, No Blood Throat/Mouth: Normal Voice, No Airway Compromise, Other (Somewhat dry mucous membranes) Head Exam: Atraumatic, Normocephalic Vertigo: reproducible Neck: Normal Inspection, Supple, Non-Tender, Full Range of Motion Respiratory/Chest: No Respiratory Distress, Lungs Clear, Normal Breath Sounds, No Accessory Muscle Use, Chest Non-Tender Cardiovascular: Normal Peripheral Pulses, Tachycardia, Irregularly Irregular GI/Abdominal: Normal Bowel Sounds, Soft, Non-Tender, No Mass Neurological: Alert, Normal Mood/Affect, Normal Dorsiflexion, CN II-XII Intact, Normal Plantar Flexion, No Motor/Sensory Deficits, Oriented x 3, Other (No pronator drift. Finger to nose is normal with no dysmetria.) Back Exam: Normal Inspection Extremities: Normal Inspection, Normal Range of Motion, Non-Tender, No Pedal Edema, Normal Capillary Refill Skin Exam: Warm, Dry, Intact, Normal Color, No Rash EKG INTERPRETATION EKG Date: 02/02/19 Time: 13:36 Rhythm: A-Fib Rate (Beats/Min): 125 [place]: Normal P-Wave: Absent QRS: Normal ST-T: Normal QT: Normal Comparison: No Change (No change from EKG performed on 08/03/2016.) Course - Vital Signs Last Recorded V/S: Last Vital Signs Temp 36.4 C 02/02/19 16:50 Pulse 91 02/02/19 16:50 Resp 20 02/02/19 16:50 BP 150/112 H 02/02/19 16:50 Pulse Ox 97 02/02/19 16:50 Orthostatic Blood Pressure [ 146/124 Standing] Orthostatic Blood Pressure [ 161/137 Sitting] Orthostatic Blood Pressure [ 165/119 Supine] - Orders/Labs/Meds Orders: Active Orders 24 hr Category Date Time Status EKG Documentation Completion [RC] ASDIRECTED Care 02/02/19 12:51 Active Head wo Cont [CT] Stat Exams 02/02/19 12:52 Taken Sodium Chloride 0.9% [Normal Saline] 1,000 ml Med 02/02/19 14:45 Active IV ASDIRECTED Sodium Chloride 0.9% [Saline Flush] Med 02/02/19 12:50 Active 10 ml FLUSH ASDIRECTED PRN Peripheral IV Insertion Adult [OM.PC] Routine Oth 02/02/19 12:50 Ordered EKG 12 Lead [EK] Routine Ther 02/02/19 12:50 Ordered Medication Orders Sodium Chloride (Normal Saline) 1,000 mls @ 150 mls/hr IV ASDIRECTED [place] Last Admin: 02/02/19 14:52 Dose: 150 mls/hr Meclizine HCl (Antivert) 25 mg PO TID [place] Sodium Chloride (Saline Flush) 10 ml FLUSH ASDIRECTED PRN PRN Reason: Keep Vein Open Labs: Laboratory Tests 02/02/19 02/02/19 Range/Units 13:10 13:10 WBC 7.4 (4.5-12.0) X10-3/uL RBC 5.30 (4.30-5.75) x10(6)uL Hgb 15.6 (13.5-17.8) g/dL Hct 47.0 (30.0-51.3) % MCV 88.8 (80-96) fL MCH 29.5 (27.7-33.6) pg MCHC 33.3 (32.2-35.4) g/dL RDW 14.9 (11.5-15.5) % Plt Count 160 (125-369) X10(3)uL MPV 8.8 (7.4-10.4) fL Neut % (Auto) 74.6 (46-82) % Lymph % (Auto) 15.4 (13-37) % [place] % (Auto) 6.8 (4-12) % Eos % (Auto) 1 (1.0-5.0) % Baso % (Auto) 2 (0-2) % Neut # (Auto) 5.6 (1.6-8.3) # Lymph # (Auto) 1.1 (0.6-5.0) # Sanders # (Auto) 0.5 (0.0-1.3) # Eos # (Auto) 0.1 (0.0-0.8) # Baso # (Auto) 0.1 (0.0-0.2) # Sodium 138 (135-145) mmol/L Potassium 4.7 (3.5-5.3) mmol/L Chloride 103 (100-110) mmol/L Carbon Dioxide 26 (21-32) mmol/L BUN 15 (7-18) mg/dL Creatinine 1.3 (0.70-1.30) mg/dL Est Cr Clr Drug Dosing TNP Estimated GFR (MDRD) 57 L (>60) BUN/Creatinine Ratio 11.5 (9-20) Glucose 201 H (80-116) mg/dL Calcium 8.7 (8.6-10.2) mg/dL Magnesium 1.8 (1.8-2.5) mg/dL Total Bilirubin 0.5 (0.1-1.3) mg/dL AST 13 (5-25) IU/L ALT 20 (12-36) U/L Alkaline Phosphatase 105 (56-112) IU/L Total Protein 7.2 (6.0-8.0) g/dL Albumin 3.7 (3.5-5.2) g/dL Globulin 3.5 g/dL Albumin/Globulin Ratio 1.1 Meds: Medications Generic Name Dose Route Start Last Admin Trade Name Freq PRN Reason Stop Dose Admin Sodium Chloride 1,000 mls @ 150 mls/hr 02/02/19 14:45 02/02/19 14:52 Normal Saline IV 150 mls/hr ASDIRECTED [place] Administration Meclizine HCl 25 mg 02/02/19 21:00 Antivert PO TID [place] Sodium Chloride 10 ml 02/02/19 12:50 Saline Flush FLUSH ASDIRECTED PRN Keep Vein Open Discontinued Medications Generic Name Dose Route Start Last Admin Trade Name Freq PRN Reason Stop Dose Admin Diazepam 2.5 mg 02/02/19 12:51 02/02/19 13:15 Valium IVPUSH 02/02/19 12:52 2.5 mg ONETIME ONE Administration Diazepam 2.5 mg 02/02/19 14:03 02/02/19 14:26 Valium IVPUSH 12/28/19 14:04 2.5 mg ONETIME ONE Administration Sodium Chloride 1,000 mls @ 999 mls/hr 02/02/19 12:51 02/02/19 13:18 Normal Saline IV 02/02/19 13:51 999 mls/hr .BOLUS ONE Administration Meclizine HCl 25 mg 02/02/19 12:51 02/02/19 13:15 Antivert PO 02/02/19 12:52 25 mg ONETIME ONE Administration Sotalol HCl 80 mg 02/02/19 14:11 02/02/19 14:54 Betapace PO 02/02/19 14:12 80 mg ONETIME ONE Administration - Radiology Interpretation Free Text/Narrative:: CT scan of head showed no acute intracranial process per the radiologist at [facility]. - Re-Assessments/Exams Free Text/Narrative Re-Assessment/Exam: 02/02/19 14:35: Patient remains awake, alert and appropriately responsive. He has, however, had no change in his dizziness despite IV fluids and medications ( Meclizine, Valium). At this point he still has nystagmus and it is in the direction of his lateral gaze and there appears to be some rotary nystagmus at this point. He still has no other lateralizing signs. I will discuss the patient 's case with the neurologist at [facility] in [place] to get further guidance in this case 02/02/19 14:45: I discussed the patient's case with Dr. Barros, neurologist at [facility] in [place], and he feels that it is possible the patient has had a cerebellar stroke and he feels the patient would need admission. He does not feel that he needs services that would be available at our institution at this time and he felt that the patient could be admitted here. 02/02/19 14:50: I discussed the neurologist recommendations with the patient and his need for admission. As the [facility], I asked if he would want me to try to transfer him to the [facility] in [place] and he did not want to be transferred to the [facility] in [place] but would want to be admitted here at [facility]. 02/02/19 14:55: Discussed the patient's case with Dr. Reyna and he will admit the patient. The patient is in agreement with the plans for admission to [facility]. 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, Atrial fibrillation with RVR CVA (cerebral vascular accident) Qualifiers: CVA mechanism: unspecified Qualified Code(s): I63.9 - Cerebral infarction, unspecified - Discharge Information Sepsis Event Note - Focused Exam Vital Signs: Vital Signs Temp Pulse Pulse Resp BP BP Pulse Ox 02/02/19 14:54 75 152/102 H 02/02/19 14:02 98 18 131/86 98 02/02/19 11:54 36.8 C 85 20 184/80 H 98 Date Exam was Performed: 02/02/19 Time Exam was Performed: 17:21 - My Orders Last 24 Hours: My Active Orders 02/02/19 12:50 Sodium Chloride 0.9% [Saline Flush] 10 ml FLUSH ASDIRECTED PRN Peripheral IV Insertion Adult [OM.PC] Routine EKG 12 Lead [EK] Routine 02/02/19 12:51 EKG Documentation Completion [RC] ASDIRECTED 02/02/19 12:52 Head wo Cont [CT] Stat 02/02/19 14:45 Sodium Chloride 0.9% [Normal Saline] 1,000 ml IV ASDIRECTED - Assessment/Plan Last 24 Hours: My Active Orders 02/02/19 12:50 Sodium Chloride 0.9% [Saline Flush] 10 ml FLUSH ASDIRECTED PRN Peripheral IV Insertion Adult [OM.PC] Routine EKG 12 Lead [EK] Routine 02/02/19 12:51 EKG Documentation Completion [RC] ASDIRECTED 02/02/19 12:52 Head wo Cont [CT] Stat 02/02/19 14:45 Sodium Chloride 0.9% [Normal Saline] 1,000 ml IV ASDIRECTED
[2019-02-02] MEDS ORDERED: Sodium Chloride 0.9% 10 ML Syringe FLUSH PRN (12:50)
[2019-02-02] MEDS ORDERED: Sodium Chloride 0.9% 1,000 ML IV ONE (12:51)
[2019-02-02] MEDS ORDERED: Meclizine 25 MG Tab PO ONE (12:51)
[2019-02-02] MEDS ORDERED: Sotalol 80 MG Tab PO ONE (14:11)
[2019-02-02] MEDS: Sodium Chloride 0.9% 1,000 ML IV SCH ×2 (14:52→21:38)
[2019-02-02] MEDS ORDERED: Acetaminophen 325 MG Tab PO PRN (19:34)
[2019-02-02] MEDS ORDERED: LORazepam 1 MG Tab PO PRN (19:40)
[2019-02-02] MEDS ORDERED: Diltiazem 100 MG in Sodium Chloride 0.9% 100 ML IV SCH (19:45)
[2019-02-02] MEDS: Diltiazem 125 MG in Sodium Chloride 0.9% 100 ML IV SCH (20:05)
[2019-02-02] MEDS: Diltiazem 125 MG/25 ML SDV ONE ×2 (20:05→22:00)
[2019-02-02] MEDS: Meclizine 25 MG Tab PO SCH (21:12)
[2019-02-02] MEDS: atorvaSTATin 20 MG Tab PO SCH (21:12)
[2019-02-02] MEDS: Apixaban 5 MG Tab PO SCH (21:12)
[2019-02-02] MEDS: glipiZIDE 5 MG Tab.ER PO SCH (21:13)
[2019-02-02] MEDS ORDERED: Diltiazem 25 MG/5 ML SDV ONE (21:28)
[2019-02-02] MEDS ORDERED: Diltiazem 25 MG/5 ML SDV IV ONE (21:30)
[2019-02-02] MEDS: Sotalol 80 MG Tab PO SCH (21:44)
[2019-02-02] MEDS ORDERED: Diazepam 5 MG Tab PO ONE (22:07)
[2019-02-03] MEDS: Sodium Chloride 0.9% 1,000 ML IV SCH ×3 (04:24→17:44)
[2019-02-03] MEDS: Diltiazem 125 MG in Sodium Chloride 0.9% 100 ML IV SCH (05:05)
[2019-02-03] MEDS: glipiZIDE 5 MG Tab.ER PO SCH ×2 (08:37→18:28)
[2019-02-03] MEDS: Meclizine 25 MG Tab PO SCH ×3 (08:37→22:03)
[2019-02-03] MEDS: Sotalol 80 MG Tab PO SCH ×2 (08:37→22:08)
[2019-02-03] MEDS: Losartan 25 MG Tab PO SCH (08:38)
[2019-02-03] MEDS: Apixaban 5 MG Tab PO SCH ×2 (08:38→22:03)
[2019-02-03] MEDS: DULoxetine 60 MG Cap PO SCH (08:38)
[2019-02-03] MEDS: Allopurinol 300 MG Tab PO SCH (08:39)
[2019-02-03] MEDS: Tamsulosin 0.4 MG Cap.ER PO SCH (08:39)
[2019-02-03] MEDS: Albuterol/Ipratropium 3.0-0.5 MG/3 ML Neb Soln INH PRN ×2 (09:34→17:40)
--- NOTE | 2019-02-03 10:47 | PN ---
DATE SEEN: 02/03/2019 SUBJECTIVE: Mr. Green is a 58-year-old male, admitted yesterday with initially concerns about vertigo and inner ear issue, complicated not rate controlled atrial fibrillation. Please see intervention care note. He has been on a Cardizem drip at 5 mcg overnight, baseline improved to 60s and 70s, goes up to 100 with activity, but not to markedly high level. LABORATORY STUDIES: Today, glucose 110, troponin 0.017. OBJECTIVE: VITAL SIGNS: 140/91, 155 kg. Pulse 107, respirations 16. GENERAL: Appears more comfortable. NECK: Benign. No JVD. CHEST: On ascultation, clear in all lung lui. HEART: Irregularly irregular at 84 at rest. ABDOMEN: Benign. ASSESSMENT: New-onset atrial fibrillation, rate control. PLAN: We will continue Cardizem drip, medications, care, and adjustments accordingly. Expectation consider transfer tomorrow weather permitting for cardioversion. /[id number] /LORELEI
--- NOTE | 2019-02-03 11:33 | HP ---
ADMISSION DATE: 02/02/2019 REASON FOR VISIT: Feeling poorly, dizzy, weak, intolerant of activity. HISTORY OF PRESENT ILLNESS: Mr. Leonardo Green is a 58-year-old male, who was seen at [facility] and admitted to the hospital for treatment. He presents with a 4-day history of some problematic sense of reduced well-being. Lightheaded, dizzy, sense of positional vertigo, weakness, and intolerance of activity. Most troublesome this morning after attending to an [id number] breakfast. Symptoms have been there probably about 4 weeks' duration. Mild nausea, but other issues. He denies chest pain, palpitations, complicated cough, respiratory bowel impairment, blood in the stool, blood in urine. Symptoms come and go, related to change in position, walking and activity. ALLERGIES: No known allergies. MEDICATIONS: Present daily medications include, 1. Albuterol hand-held nebulizer 2 puffs q.i.d. p.r.n. cough. 2. Omeprazole 20 mg one p.o. b.i.d. for GERD. 3. Allopurinol 300 mg one p.o. daily for gout. 4. Symbicort 160/4.5 two puffs b.i.d. for COPD and asthma. 5. Atorvastatin 20 mg one p.o. daily for hyperlipidemia. 6. Tylenol p.r.n. 7. Metformin 1000 mg one p.o. b.i.d. 8. Pradaxa 150 mg one p.o. b.i.d. 9. Prednisone p.r.n. 10.Lyrica 100 mg b.i.d. 11.Sotalol 80 mg b.i.d. PAST SURGICAL HISTORY: Complicated in nature. Had a recent complex left ankle reconstruction. He has had a cervical spine fusion and surgery, has a nerve stimulator in the left lateral back, had a complicated right shoulder injury. Partial nephrectomy/ablation for left kidney cancer remotely in the past. PAST MEDICAL HISTORY: Chronic illnesses include diabetes mellitus, hypertension, reactive airway disease, COPD, hyperuricemia, and gastroesophageal reflux. History of atrial fibrillation, probably 3 years ago, cardioversion, on Sotalol and Cardizem for rate control. SOCIAL HISTORY: Happily . , 51 and in good health. 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 6 children and 11 grandchildren. Quit smoking in 2013. Quit alcohol in 2017. No chewing tobacco. No vaping. No illicit drug use. FAMILY HISTORY: Negative for early heart disease, diabetes mellitus, or inheritable cancers. REVIEW OF SYSTEMS: CONSTITUTIONAL: Feeling poorly. EYES: Sees well. EARS: Difficulty in crowds. Hearing aids placed. OROPHARYNX: Intact dentition. No loose teeth. CHEST: Chronic cough. CV: Denies chest pain or palpitations. GI: Regular predictable stools. No blood in the stools. : Good voiding pattern. No blood in urine. SKIN: No open sores or lesions. ENDOCRINE: No excessive thirst or urination. ALLERGIES: None. ORTHOPEDIC: Generalized joint complaints. PHYSICAL EXAMINATION: VITAL SIGNS: 1.98 m and 154.85 kg. Blood pressure 144/100, pulse 140 to 160. O2 saturation 94%. GENERAL: Large, markedly obese middle-aged gentleman, appears older than stated age. HEENT: Funduscopic benign. Conjunctivae clear. Bright tympanic membranes. Decreased hearing. Clear nasal discharge. Mouth and oropharynx, clear. NECK: Benign. Thyroid small. CHEST: On auscultation, clear in all lung lui. HEART: On auscultation, no ectopy or murmur. On auscultation, irregularly irregular at 120 to 160. BREASTS: Normal male breasts. Mild gynecomastia. ABDOMEN: Benign. Surgical scars well healed. No hepatosplenomegaly. Palpable device, left flank. : Normal male genitalia. Hernia is absent. RECTAL: Deferred. EXTREMITIES: Well perfused. Surgical scar to left ankle. DIAGNOSES: Vertiginous weak spells, related to uncontrolled new-onset atrial fibrillation. SECONDARY DIAGNOSES: Please see multiple health issues described above. PLAN: Admission to the hospital is indicated. We will start him on IV Cardizem. Complementary care and well being. He is on Pradaxa, a candidate for cardioversion if indicated. Observation and treatment from there. /[id number] /LORELEI
[2019-02-03] MEDS: SYMBICORT INH SCH (21:58)
[2019-02-03] MEDS ORDERED: Formoterol/Mometasone 200-5 MCG 8.8 GM Inhaler ONE (22:01)
[2019-02-03] MEDS: atorvaSTATin 20 MG Tab PO SCH (22:03)
[2019-02-04] MEDS: Sodium Chloride 0.9% 1,000 ML IV SCH ×2 (00:33→07:17)
[2019-02-04] MEDS: Diltiazem 125 MG in Sodium Chloride 0.9% 100 ML IV SCH (03:36)
[2019-02-04] MEDS ORDERED: Atropine/Diphenoxylate 0.025-2.5 MG Tab PO PRN (06:22)
[2019-02-04] MEDS: glipiZIDE 5 MG Tab.ER PO SCH (08:42)
[2019-02-04] MEDS: Apixaban 5 MG Tab PO SCH (08:42)
[2019-02-04] MEDS: Losartan 25 MG Tab PO SCH (08:42)
[2019-02-04] MEDS: Sotalol 80 MG Tab PO SCH (08:42)
[2019-02-04] MEDS: Meclizine 25 MG Tab PO SCH (08:42)
[2019-02-04] MEDS: DULoxetine 60 MG Cap PO SCH (08:42)
[2019-02-04] MEDS: Allopurinol 300 MG Tab PO SCH (08:43)
[2019-02-04] MEDS: Tamsulosin 0.4 MG Cap.ER PO SCH (08:43)
[2019-02-04] MEDS: SYMBICORT INH SCH (08:43)
[2019-02-04] MEDS ORDERED: Formoterol/Mometasone 200-5 MCG 8.8 GM Inhaler IH SCH (09:00)
[2019-02-04 12:29] VITALS: BP 148/95; PULSE 94
--- NOTE | 2019-02-04 13:01 | DISCH ---
DISCHARGE DATE: 02/04/2019 HISTORY: Leonardo Green is a 58-year-old male, admitted through [facility] ER. Presented with a 4-day history of weakness, dizziness, lightheadedness, and a sense of reduced well-being. Vertiginous episode thought maybe to be of central nervous system origin. EKG though revealed atrial fibrillation with rapid ventricular response in the 150s and 160s with activity. Please see admission history and physical. HOSPITAL COURSE: The patient was admitted to the hospital for monitoring. He was placed in ICU. Due to rapid ventricular response to atrial fibrillation, was started on a Cardizem drip. Drip was maintained through his hospital stay and created a good opportunity of resting heart rate of 70 to 80, with activity less than 120. Tolerated well. Laboratory studies were unremarkable, electrolytes were satisfactory, CBC and troponin were negative. EKG on the morning of 02/03/19 revealed persistent atrial fibrillation. Attempts to transfer on the were unsuccessful due to the weather. Discussed implications and concerns in the interim. Maintain good health and well being. I spoke with Dr. Coto, Hospitalist, Alana Paul, the morning of 02/04/19, agreed to accept in transfer. PHYSICAL EXAMINATION: VITAL SIGNS: 36.5, 142/88, 91 is the mean blood pressure, heart rate 86, O2 saturation 97%. GENERAL: Appears comfortable. HEENT: Funduscopic benign. Bright TMs. Clear nasal discharge. Mouth and oropharynx clear. Poor dentition. Tongue midline. Good gag reflex. NECK: Benign. Thyroid small. CHEST: Clear in all lung lui. No adventitious sounds. HEART: Irregularly irregular at 100. Soft murmur appreciated. BREAST: Normal male breasts. ABDOMEN: Benign. Surgical scars well healed. EXTREMITIES: Well perfused. Moderate edema. ASSESSMENT: Atrial fibrillation, rate controlled, persistent, on Eliquis therapy. PLAN: We will plan transfer to Dr. Coto, hospitalist, Alana Paul. Recommendations and treatment to follow. /[id number] /LORELEI
== END 2019-02-04 12:30 | DRG 310 ==
LOC: FB.ED 11:54 → FB.MS 15:02 → FB.ICU 19:32
PROVIDERS: ADMIT Family Medicine; ATTEND Family Medicine
DX: I63.9 Cerebral infarction, unspecified (principal); R42 Dizziness and giddiness; I48.91 Unspecified atrial fibrillation; I48.19 Other persistent atrial fibrillation; I10 Essential (primary) hypertension; J44.9 Chronic obstructive pulmonary disease, unspecified; E79.0 Hyperuricemia without signs of inflammatory arthritis and tophaceous disease; K58.9 Irritable bowel syndrome, unspecified; K21.9 Gastro-esophageal reflux disease without esophagitis; G47.30 Sleep apnea, unspecified; E11.42 Type 2 diabetes mellitus with diabetic polyneuropathy; E11.21 Type 2 diabetes mellitus with diabetic nephropathy; M19.90 Unspecified osteoarthritis, unspecified site; F98.8 Other specified behavioral and emotional disorders with onset usually occurring in childhood and adolescence; F32.9 Major depressive disorder, single episode, unspecified; Z79.01 Long term (current) use of anticoagulants; Z90.89 Acquired absence of other organs; Z87.891 Personal history of nicotine dependence; Z79.899 Other long term (current) drug therapy; Z79.52 Long term (current) use of systemic steroids; Z87.01 Personal history of pneumonia (recurrent); Z99.81 Dependence on supplemental oxygen; Z79.84 Long term (current) use of oral hypoglycemic drugs; Z98.1 Arthrodesis status; Z98.890 Other specified postprocedural states
CPT/HCPCS: 36415; 70450; 80053; 83735; 85025; 93005; A9270 ×2; J3360 ×2; J7030 ×2; 82962; 84484; 93010; 94640; 99285; J3490; J7050; J7620-GY

== ENCOUNTER 2019-08-21 13:48 | Emergency (ER) | payer MEDICARE, OTHER ==
--- NOTE | 2019-08-21 14:23 | EDM.PDOC ---
ED HPI GENERAL MEDICAL PROBLEM - General Stated Complaint: TROUBLE BREATHING Time Seen by Provider: 08/21/19 14:05 Source of Information: Reports: Patient History Limitations: Reports: No Limitations - History of Present Illness INITIAL COMMENTS - FREE TEXT/NARRATIVE: c/o sob x 1y pt has had chronic dyspnea, no cigs in past 7y, has been using Duoneb 6-7x/d on steroids 1m ago that did not help has had dizzy when on his feet x 1d, walked across living room and was dizzy and fell h/o afib, ablation x 2, last ablation in the fall, was in afib on EKG 7m ago at the end of Jan says he feels fine now lying on the bed in the ED, says he will get dizzy, lightheaded and sob if he gets up on his feet denies pain lives with friend who is not ill no n/v, no f/c/d says he is afraid he will fall if he gets on his feet ate a piece of toast for bfast and a piece of pizza for lunch 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 [place] EKG now with afib, rate 105, no change c/w 7m ago, QTc 453 PMH PUL: COPD, asthma, JASON, nicotine user, [place] ENDOC: DM2 BEH: depression GEN'L obesity NEURO: CVA, vertigo d/t cerebrovascular disease CV: afib with RVR ORTHO: s/p cervical spinal fusion, backache HEME: anticoag on coumadin RECENT MEDS IN [facility] ENDOC: glipiz 5 bid, alogliptin 6.25/d CV: atorvas 20/hs, sotalol 80 bid, losartan 25/d, dilt 180/d, apixaban 5 bid PUL: Symbicort bid, Duoneb q4h prn, alb HFA q4h prn PAIN: APAP 650 q4h prn GI: omperaz 25/d ORTHO: allopurinol 300/d : tamsulosin 0.4/d, finasteride 5/d BEH: duloxetine 60/d LABS IN EPIC: 7m ago CBC neg 7m ago with trop neg, 9 other trops in past 5y are all neg 7m ago with BUN/creat 15/1.3 with GFR 57, no comparison 7m ago with EKG with afib 77, low voltage, inc'd QTc 499, nonspecific t-wave flattening 3y ago with d-dimer neg 3y ago with A1C 7.1 3y ago with BNP 125 (normal 0-100), no comparison TESTS IN EPIC: last CxR 3y ago with no acute change, heart size wnl last echo 1y ago with nl LV size, mod cLVH, EF 70%, no diastolic dysfunction, LA size wnl, AV mean gradient [address] 7m ago neg last head MRI 2y ago neg - Related Data Allergies Allergy/AdvReac Type Severity Reaction Status Date / Time No Known Allergies Allergy Verified 08/02/16 09:39 Home Meds: Home Meds Albuterol Sulfate [Albuterol Sulfate HFA] 2 puff INH Q4HR PRN 03/06/14 [History] Omeprazole 20 mg PO DAILY 03/06/14 [History] allopurinoL [Zyloprim] 300 mg PO DAILY 03/06/14 [History] Budesonide/Formoterol [Symbicort 160-4.5 MCG] 2 inhalation INH BID 04/13/15 [History] atorvaSTATin [Lipitor] 20 mg PO BEDTIME 01/05/16 [History] Sotalol [Betapace] 80 mg PO BID 10/17/16 [History] Albuterol/Ipratropium [DuoNeb 3.0-0.5 MG/3 ML] 3 ml INH Q4HWA PRN 02/02/19 [History] Alogliptin Benzoate [Alogliptin] 6.25 mg PO DAILY 02/02/19 [History] Apixaban [Eliquis] 5 mg PO BID 02/02/19 [History] DULoxetine HCl [Duloxetine HCl] 90 mg PO DAILY 02/02/19 [History] Diltiazem [Dilacor XR] 180 mg PO DAILY 02/02/19 [History] Losartan [Cozaar] 25 mg PO DAILY 02/02/19 [History] Tamsulosin [Flomax] 0.4 mg PO DAILY 02/02/19 [History] glipiZIDE [Glipizide ER] 5 mg PO BID 02/02/19 [History] Aspirin [Adult Low Dose Aspirin EC] 81 mg PO DAILY 08/21/19 [History] Finasteride 5 mg PO DAILY 08/21/19 [History] Mometasone Furoate [Asmanex] 220 mcg IH BID 08/21/19 [History] Past Medical History HEENT History: Reports: Impaired Vision Cardiovascular History: Reports: Afib, Hypertension, SOB on Exertion Respiratory History: Reports: COPD, Pneumonia, Recurrent Other Respiratory History: uses CPAP and has sleep apnea Gastrointestinal History: Reports: Diverticulosis (With bouts of diverticulitis), Irritable Bowel Syndrome Other Gastrointestinal History: diverticulitis Genitourinary History: Reports: Diabetic Nephropathy Musculoskeletal History: Reports: Fracture, Osteoarthritis Neurological History: Reports: Concussion, Neuropathy, Diabetic, Neuropathy, Peripheral Psychiatric History: Reports: ADD, Depression Endocrine/Metabolic History: Reports: Diabetes, Type II Hematologic History: Reports: Anticoagulation Therapy (On Eliquis) Oncologic (Cancer) History: Reports: Other (See Below) Other Oncologic History: LEFT KIDNEY CA - Infectious Disease History Infectious Disease History: Reports: Chicken Pox, Measles, Shingles - Past Surgical History HEENT Surgical History: Reports: Tonsillectomy Cardiovascular Surgical History: Reports: Other (See Below) (Cardiac catheterization with reported normal coronary arteries per the patient.) GI Surgical History: Reports: Hernia Repair/Other Musculoskeletal Surgical History: Reports: Arthroscopic Knee Social & Family History - Family History Family Medical History: Noncontributory - Caffeine Use Caffeine Use: Reports: Coffee, Tea Other Caffeine Use: 2 cups per day - Living Situation & Occupation Living situation: Reports: ED ROS GENERAL - Review of Systems Review Of Systems: See Below Constitutional: Reports: No Symptoms HEENT: Reports: No Symptoms Respiratory: Reports: Shortness of Breath Cardiovascular: Reports: No Symptoms Endocrine: Reports: No Symptoms GI/Abdominal: Reports: No Symptoms : Reports: No Symptoms Musculoskeletal: Reports: No Symptoms Skin: Reports: No Symptoms Neurological: Reports: Other (dizzy, lighthead) Psychiatric: Reports: No Symptoms Hematologic/Lymphatic: Reports: No Symptoms Immunologic: Reports: No Symptoms ED EXAM, GENERAL - Physical Exam Exam: See Below General Appearance: Alert, WD/WN, No Apparent Distress, Other (alert, pleasant, nonill) Eye Exam: Bilateral Eye: EOMI, PERRL Ears: Hearing Grossly Normal Nose: Normal Inspection, Normal Mucosa, No Blood Throat/Mouth: Normal Inspection Head: Atraumatic, Normocephalic Neck: Normal Inspection, Supple, Non-Tender, Full Range of Motion Respiratory/Chest: No Respiratory Distress, Lungs Clear, No Accessory Muscle Use, Chest Non-Tender, Other (no wheeze, fair AE, no cough, no dyspnea) Cardiovascular: Normal Peripheral Pulses, Regular Rate, Rhythm, No Edema, No Gallop, No Murmur, No Rub, Other (1+ DP pulse b/l) GI/Abdominal: Normal Bowel Sounds, Soft, Non-Tender, Other (obese, rounded, protuberant, no dull at flanks) Back Exam: Normal Inspection, Full Range of Motion, NT Extremities: Normal Inspection, Normal Range of Motion, Non-Tender, No Pedal Edema, Other (a few 4-5 mm varicosities noted) Neurological: Alert, Oriented, CN II-XII Intact, Normal Cognition, No Motor/Sensory Deficits Psychiatric: Normal Affect, Normal Mood Skin Exam: Warm, Dry, Intact, Normal Color, No Rash, Other (turgor dec'd UEs) Lymphatic: No Adenopathy Course - Vital Signs Last Recorded V/S: Last Vital Signs Temp 36.5 C 08/21/19 13:50 Pulse 105 H 08/21/19 13:50 Resp 22 H 08/21/19 13:50 BP 129/80 08/21/19 13:50 Pulse Ox 98 08/21/19 13:50 Orthostatic Blood Pressure [ 116/77 Standing] Orthostatic Blood Pressure [ 128/88 Sitting] Orthostatic Blood Pressure [ 128/84 Supine] - Orders/Labs/Meds Orders: Active Orders 24 hr Category Date Time Status EKG Documentation Completion [RC] ASDIRECTED Care 08/21/19 14:20 Ordered Orthostatic Vital Signs [RC] ASDIRECTED Care 08/21/19 14:37 Ordered Chest 2V [CR] Stat Exams 08/21/19 14:19 Ordered Sodium Chloride 0.9% [Normal Saline] 1,000 ml Med 08/21/19 15:30 Ordered IV ASDIRECTED EKG 12 Lead [EK] Routine Ther 08/21/19 14:19 Ordered Medication Orders Sodium Chloride (Normal Saline) 1,000 mls @ 999 mls/hr IV ASDIRECTED [place] Last Admin: 08/21/19 15:32 Dose: 999 mls/hr Documented by: GERI Labs: Laboratory Tests 0708/21/19 08/21/19 Range/Units 15:10 15:10 15:10 WBC 10.6 (4.5-12.0) X10-3/uL RBC 5.53 (4.30-5.75) x10(6)uL Hgb 15.9 (13.5-17.8) g/dL Hct 49.0 (30.0-51.3) % MCV 88.6 (80-96) fL MCH 28.8 (27.7-33.6) pg MCHC 32.5 (32.2-35.4) g/dL RDW 13.8 (11.5-15.5) % Plt Count 194 (125-369) X10(3)uL MPV 9.7 (7.4-10.4) fL Neut % (Auto) 73.6 (46-82) % Lymph % (Auto) 18.2 (13-37) % [place] % (Auto) 6.3 (4-12) % Eos % (Auto) 1 (1.0-5.0) % Baso % (Auto) 1 (0-2) % Neut # (Auto) 7.8 (1.6-8.3) # Lymph # (Auto) 1.9 (0.6-5.0) # [place] # (Auto) 0.7 (0.0-1.3) # Eos # (Auto) 0.1 (0.0-0.8) # Baso # (Auto) 0.1 (0.0-0.2) # PT (9.0-11.1) sec INR (1.00-1.24) D-Dimer, Quantitative 0.25 (0.0-0.59) mg/LFEU Sodium 138 (135-145) mmol/L Potassium 4.4 (3.5-5.3) mmol/L Chloride 104 (100-110) mmol/L Carbon Dioxide 26 (21-32) mmol/L BUN 21 H (7-18) mg/dL Creatinine 1.3 (0.70-1.30) mg/dL Est Cr Clr Drug Dosing TNP Estimated GFR (MDRD) 57 L (>60) BUN/Creatinine Ratio 16.2 (9-20) Glucose 171 H (80-116) mg/dL Calcium 8.9 (8.6-10.2) mg/dL Total Bilirubin 0.4 (0.1-1.3) mg/dL AST 11 D (5-25) IU/L ALT 23 D (12-36) U/L Alkaline Phosphatase 84 (56-112) IU/L Troponin I (4.0-60.3) pg/mL C-Reactive Protein (0.5-0.9) mg/dL NT-Pro-B Natriuret Pep (<=125) pg/mL Total Protein 7.0 (6.0-8.0) g/dL Albumin 3.5 (3.5-5.2) g/dL Globulin 3.5 g/dL Albumin/Globulin Ratio 1.0 TSH, Ultra Sensitive (0.36-3.74) IU/mL Urine Color (YELLOW) Urine Appearance (CLEAR) Urine pH (5.0-6.5) Ur Specific [place] (1.010-1.025) Urine Protein (NEGATIVE) mg/dL Urine Glucose (UA) (NORMAL) mg/dL Urine Ketones (NEGATIVE) mg/dL Urine Occult Blood (NEGATIVE) Urine Nitrite (NEGATIVE) Urine Bilirubin (NEGATIVE) Urine Urobilinogen (NEGATIVE) mg/dL Ur Leukocyte Esterase (NEGATIVE) Urine RBC (0-5) Urine WBC (0-5) Ur Squamous Epith Cells (NS,R,O) Urine Bacteria (NS) Urine Mucus (NS) 08/21/19 08/21/19 08/21/19 Range/Units 15:10 15:10 15:10 WBC (4.5-12.0) X10-3/uL RBC (4.30-5.75) x10(6)uL Hgb (13.5-17.8) g/dL Hct (30.0-51.3) % MCV (80-96) fL MCH (27.7-33.6) pg MCHC (32.2-35.4) g/dL RDW (11.5-15.5) % Plt Count (125-369) X10(3)uL MPV (7.4-10.4) fL Neut % (Auto) (46-82) % Lymph % (Auto) (13-37) % [place] % (Auto) (4-12) % Eos % (Auto) (1.0-5.0) % Baso % (Auto) (0-2) % Neut # (Auto) (1.6-8.3) # Lymph # (Auto) (0.6-5.0) # [place] # (Auto) (0.0-1.3) # Eos # (Auto) (0.0-0.8) # Baso # (Auto) (0.0-0.2) # PT 11.0 (9.0-11.1) sec INR 1.02 (1.00-1.24) D-Dimer, Quantitative (0.0-0.59) mg/LFEU Sodium (135-145) mmol/L Potassium (3.5-5.3) mmol/L Chloride (100-110) mmol/L Carbon Dioxide (21-32) mmol/L BUN (7-18) mg/dL Creatinine (0.70-1.30) mg/dL Est Cr Clr Drug Dosing Estimated GFR (MDRD) (>60) BUN/Creatinine Ratio (9-20) Glucose (80-116) mg/dL Calcium (8.6-10.2) mg/dL Total Bilirubin (0.1-1.3) mg/dL AST (5-25) IU/L ALT (12-36) U/L Alkaline Phosphatase (56-112) IU/L Troponin I 27.7 (4.0-60.3) pg/mL C-Reactive Protein < 0.2 L (0.5-0.9) mg/dL NT-Pro-B Natriuret Pep 2278 H* (<=125) pg/mL Total Protein (6.0-8.0) g/dL Albumin (3.5-5.2) g/dL Globulin g/dL Albumin/Globulin Ratio TSH, Ultra Sensitive 1.20 (0.36-3.74) IU/mL Urine Color (YELLOW) Urine Appearance (CLEAR) Urine pH (5.0-6.5) Ur Specific [place] (1.010-1.025) Urine Protein (NEGATIVE) mg/dL Urine Glucose (UA) (NORMAL) mg/dL Urine Ketones (NEGATIVE) mg/dL Urine Occult Blood (NEGATIVE) Urine Nitrite (NEGATIVE) Urine Bilirubin (NEGATIVE) Urine Urobilinogen (NEGATIVE) mg/dL Ur Leukocyte Esterase (NEGATIVE) Urine RBC (0-5) Urine WBC (0-5) Ur Squamous Epith Cells (NS,R,O) Urine Bacteria (NS) Urine Mucus (NS) 08/21/19 Range/Units 16:36 WBC (4.5-12.0) X10-3/uL RBC (4.30-5.75) x10(6)uL Hgb (13.5-17.8) g/dL Hct (30.0-51.3) % MCV (80-96) fL MCH (27.7-33.6) pg MCHC (32.2-35.4) g/dL RDW (11.5-15.5) % Plt Count (125-369) X10(3)uL MPV (7.4-10.4) fL Neut % (Auto) (46-82) % Lymph % (Auto) (13-37) % [place] % (Auto) (4-12) % Eos % (Auto) (1.0-5.0) % Baso % (Auto) (0-2) % Neut # (Auto) (1.6-8.3) # Lymph # (Auto) (0.6-5.0) # [place] # (Auto) (0.0-1.3) # Eos # (Auto) (0.0-0.8) # Baso # (Auto) (0.0-0.2) # PT (9.0-11.1) sec INR (1.00-1.24) D-Dimer, Quantitative (0.0-0.59) mg/LFEU Sodium (135-145) mmol/L Potassium (3.5-5.3) mmol/L Chloride (100-110) mmol/L Carbon Dioxide (21-32) mmol/L BUN (7-18) mg/dL Creatinine (0.70-1.30) mg/dL Est Cr Clr Drug Dosing Estimated GFR (MDRD) (>60) BUN/Creatinine Ratio (9-20) Glucose (80-116) mg/dL Calcium (8.6-10.2) mg/dL Total Bilirubin (0.1-1.3) mg/dL AST (5-25) IU/L ALT (12-36) U/L Alkaline Phosphatase (56-112) IU/L Troponin I (4.0-60.3) pg/mL C-Reactive Protein (0.5-0.9) mg/dL NT-Pro-B Natriuret Pep (<=125) pg/mL Total Protein (6.0-8.0) g/dL Albumin (3.5-5.2) g/dL Globulin g/dL Albumin/Globulin Ratio TSH, Ultra Sensitive (0.36-3.74) IU/mL Urine Color Yellow (YELLOW) Urine Appearance Clear (CLEAR) Urine pH 5.0 (5.0-6.5) Ur Specific [place] 1.025 (1.010-1.025) Urine Protein Trace (NEGATIVE) mg/dL Urine Glucose (UA) Normal (NORMAL) mg/dL Urine Ketones 15 H (NEGATIVE) mg/dL Urine Occult Blood Negative (NEGATIVE) Urine Nitrite Positive H (NEGATIVE) Urine Bilirubin Small H (NEGATIVE) Urine Urobilinogen 1 H (NEGATIVE) mg/dL Ur Leukocyte Esterase Negative (NEGATIVE) Urine RBC 0-5 (0-5) Urine WBC 0-5 (0-5) Ur Squamous Epith Cells Occasional (NS,R,O) Urine Bacteria Few H (NS) Urine Mucus Moderate H (NS) Meds: Medications Generic Name Dose Route Start Last Admin Trade Name Freq PRN Reason Stop Dose Admin Sodium Chloride 1,000 mls @ 999 mls/hr 08/21/19 15:30 08/21/19 15:32 Normal Saline IV 999 mls/hr ASDIRECTED [place] Administration Discontinued Medications Generic Name Dose Route Start Last Admin Trade Name Freq PRN Reason Stop Dose Admin Aspirin 243 mg 08/21/19 16:52 08/21/19 16:54 Aspirin PO 08/21/19 16:53 243 mg ONETIME ONE Administration - Re-Assessments/Exams Free Text/Narrative Re-Assessment/Exam: 08/21/19 17:37 pt able to ambulate after 1 liter of NS, states he has been drinking, not on diuretic, however he is dehydrated by labs (inc'd SG, 15 mg/dl ket, inc'd BU n/creat) cause of inc'd BNP unclear altho no comparison CxR 2v is neg per radiology pt has no BP cuff at home, [facility] with cardiology (Brittany), pulmonary (Elian) and PCP (sp, name not known) 08/21/19 17:39 maintained O2 sats of 97-98% here, even after walking, on RA Departure - Departure Time of Disposition: 17:32 Disposition: Home, Self-Care 01 Condition: Good Clinical Impression: Dehydration, Orthostasis, Elevated brain natriuretic peptide (BNP) level, Acute on chronic renal insufficiency - Discharge Information *PRESCRIPTION DRUG MONITORING PROGRAM REVIEWED*: Not Applicable *COPY OF PRESCRIPTION DRUG MONITORING REPORT IN PATIENT MONIQUE: Not Applicable Instructions: Dehydration, Adult, [id number], Rehydration, Adult Referrals: PCP,None [Ordering Only Provider] - Additional Instructions: Even though you have been maintaining fluids, you are behind on fluids in your blood and urine, both of which are concentrated. Your BP drops from 128/84 to 116/77 when going from supine to standing, with a corresponding increase in HR from 105 to 130, which is causing your dizziness. Increasing fluids will help. Continue current meds. However, make an appointment to see both your director business management and radiologist for further recommendations. Return to ED if you are feeling worse. Sepsis Event Note (ED) - Focused Exam Vital Signs: Vital Signs Temp Pulse Resp BP Pulse Ox 08/21/19 13:50 36.5 C 105 H 22 H 129/80 98 - My Orders Last 24 Hours: My Active Orders 08/21/19 14:19 Chest 2V [CR] Stat EKG 12 Lead [EK] Routine 08/21/19 14:20 EKG Documentation Completion [RC] ASDIRECTED 08/21/19 14:37 Orthostatic Vital Signs [RC] ASDIRECTED 08/21/19 15:30 Sodium Chloride 0.9% [Normal Saline] 1,000 ml IV ASDIRECTED - Assessment/Plan Last 24 Hours: My Active Orders 08/21/19 14:19 Chest 2V [CR] Stat EKG 12 Lead [EK] Routine 08/21/19 14:20 EKG Documentation Completion [RC] ASDIRECTED 08/21/19 14:37 Orthostatic Vital Signs [RC] ASDIRECTED 08/21/19 15:30 Sodium Chloride 0.9% [Normal Saline] 1,000 ml IV ASDIRECTED
[2019-08-21] MEDS ORDERED: Sodium Chloride 0.9% 1,000 ML IV SCH (15:30)
[2019-08-21] MEDS ORDERED: Aspirin 81 MG Tab.Chew PO ONE (16:52)
[2019-08-21 19:02] VITALS: BP 155/87; PULSE 90
== END 2019-08-21 17:43 | disposition home or self-care (01) ==
LOC: FB.ED 13:48
DX: E86.0 Dehydration (principal); R74.8 Abnormal levels of other serum enzymes; I12.9 Hypertensive chronic kidney disease with stage 1 through stage 4 chronic kidney disease, or unspecified chronic kidney disease; E11.22 Type 2 diabetes mellitus with diabetic chronic kidney disease; N18.9 Chronic kidney disease, unspecified; E11.21 Type 2 diabetes mellitus with diabetic nephropathy; E11.42 Type 2 diabetes mellitus with diabetic polyneuropathy; F32.9 Major depressive disorder, single episode, unspecified; M19.90 Unspecified osteoarthritis, unspecified site; J44.9 Chronic obstructive pulmonary disease, unspecified; E66.9 Obesity, unspecified; Z68.39 Body mass index [BMI] 39.0-39.9, adult; Z79.01 Long term (current) use of anticoagulants; Z79.82 Long term (current) use of aspirin; Z79.84 Long term (current) use of oral hypoglycemic drugs; Z79.899 Other long term (current) drug therapy; Z86.73 Personal history of transient ischemic attack (TIA), and cerebral infarction without residual deficits
CPT/HCPCS: 36415; 71046; 80053; 81001; 83880; 84443; 84484; 85025; 85379; 85610; 86140; 93005; 96360; 99285-25; A9270-GY; J7030

== ENCOUNTER 2021-03-03 06:05 | Emergency (ER) | payer MEDICARE, OTHER ==
[2021-03-03] MEDS ORDERED: methylPREDNISolone Sodium Succinate 125 MG/2 ML SDV IM ONE (06:15)
[2021-03-03] MEDS ORDERED: Albuterol/Ipratropium 3.0-0.5 MG/3 ML Neb Soln NEB ONE ×2 (06:16→07:07)
[2021-03-03] MEDS ORDERED: Sodium Chloride 0.9% 10 ML Syringe FLUSH PRN (06:41)
[2021-03-03] MEDS ORDERED: Morphine 4 MG/ML VIAL IM STA (07:09)
[2021-03-03 07:46] LABS: BASE EXCESS VENOUS,POC -1 mmol/L (-2 - 3+); PCO2 VENOUS,POC 43 mmHg (41-51); PH VENOUS,POC 7.37 pH Units (7.32-7.43)
[2021-03-03 08:29] VITALS: BP 142/84; PULSE 74
== END 2021-03-03 08:20 | disposition home or self-care (01) ==
LOC: FB.ED 06:05
DX: J44.1 Chronic obstructive pulmonary disease with (acute) exacerbation (principal); I48.91 Unspecified atrial fibrillation; E78.00 Pure hypercholesterolemia, unspecified; I10 Essential (primary) hypertension; E11.21 Type 2 diabetes mellitus with diabetic nephropathy; M19.90 Unspecified osteoarthritis, unspecified site; E11.42 Type 2 diabetes mellitus with diabetic polyneuropathy; Z87.891 Personal history of nicotine dependence; Z79.01 Long term (current) use of anticoagulants; Z79.82 Long term (current) use of aspirin; Z79.899 Other long term (current) drug therapy
CPT/HCPCS: 36415; 71046; 80053; 83880; 84484; 85025; 93005; 94640; 96372; 99285; J2270; J2930; J7620-GY

== ENCOUNTER 2021-10-22 11:01 | Emergency (ER) | payer MEDICARE, OTHER ==
[2021-10-22 11:47] LABS: ESTIMATED GFR 69 mL/min (>60)
[2021-10-22 14:09] VITALS: BP 122/87; PULSE 81
== END 2021-10-22 13:20 | disposition home or self-care (01) ==
LOC: FB.ED 11:01
DX: S50.02XA Contusion of left elbow, initial encounter (principal); R53.1 Weakness; E11.42 Type 2 diabetes mellitus with diabetic polyneuropathy; E11.21 Type 2 diabetes mellitus with diabetic nephropathy; I10 Essential (primary) hypertension; J44.9 Chronic obstructive pulmonary disease, unspecified; E78.00 Pure hypercholesterolemia, unspecified; F32.A Depression, unspecified; M19.90 Unspecified osteoarthritis, unspecified site; Z79.82 Long term (current) use of aspirin; W01.10XA Fall on same level from slipping, tripping and stumbling with subsequent striking against unspecified object, initial encounter
CPT/HCPCS: 36415; 80048; 83735; 85027; 99284

== ENCOUNTER 2021-11-20 18:03 | Emergency (ER) | payer OTHER, MEDICARE ==
[2021-11-20] MEDS ORDERED: Pantoprazole 40 MG Vial IVPUSH STA (18:36)
[2021-11-20] MEDS ORDERED: Iopamidol 755 Mg/ML 100 ML Bottle IV ONE (18:41)
[2021-11-20] MEDS ORDERED: Albuterol/Ipratropium 3.0-0.5 MG/3 ML Neb Soln NEB ONE (18:45)
[2021-11-20] MEDS ORDERED: Ondansetron 4 MG/2 ML SDV IVPUSH ONE (18:45)
[2021-11-20] MEDS ORDERED: methylPREDNISolone Sodium Succinate 125 MG/2 ML SDV IVPUSH ONE (18:45)
[2021-11-20] MEDS ORDERED: Morphine 4 MG/ML VIAL IVPUSH ONE (18:45)
[2021-11-20 18:48] LABS: ESTIMATED GFR 76 mL/min (>60)
[2021-11-20] MEDS ORDERED: Piperacillin/Tazobactam 4.5 GM in Sodium Chloride 0.9% 100 ML IV STA (19:36)
[2021-11-20] MEDS: Sodium Chloride 0.9% 1,000 ML IV SCH ×2 (19:37→20:23)
[2021-11-20] MEDS ORDERED: VANCOmycin 1.5 GM/300 ML 1.5 GM in Premix Bag 1 BAG IV ONE (19:44)
[2021-11-20] MEDS ORDERED: HYDROmorphone 2 MG/ML SDV IVPUSH STA (20:03)
[2021-11-20] MEDS: VANCOmycin 1.5 GM/300 ML 300 ML ONE ×2 (20:03→20:21)
[2021-11-20] MEDS ORDERED: Sodium Chloride 0.9% 10 ML Syringe FLUSH PRN (20:19)
[2021-11-20 20:42] VITALS: BP 98/62; PULSE 85
[2021-11-20] MEDS ORDERED: Sodium Chloride 0.9% 1,000 ML IV SCH (21:00)
[2021-11-20] MEDS ORDERED: Norepinephrine Bit/D5W Premix 4 MG in Premix Bag 1 BAG IV SCH (21:30)
[2021-11-20] MEDS ORDERED: Norepinephrine Bit/D5W Premix 250 ML ONE (21:33)
== END 2021-11-20 21:45 ==
LOC: FB.ED 18:03
DX: K52.9 Noninfective gastroenteritis and colitis, unspecified (principal); E86.0 Dehydration; J44.1 Chronic obstructive pulmonary disease with (acute) exacerbation; K63.1 Perforation of intestine (nontraumatic); E66.9 Obesity, unspecified; Z68.33 Body mass index [BMI] 33.0-33.9, adult; E11.21 Type 2 diabetes mellitus with diabetic nephropathy; E11.41 Type 2 diabetes mellitus with diabetic mononeuropathy; I48.91 Unspecified atrial fibrillation; E78.00 Pure hypercholesterolemia, unspecified; F32.A Depression, unspecified; M19.90 Unspecified osteoarthritis, unspecified site; Z79.01 Long term (current) use of anticoagulants; Z98.84 Bariatric surgery status; Z79.899 Other long term (current) drug therapy; Z79.82 Long term (current) use of aspirin
CPT/HCPCS: 36415; 70450; 71045; 74177; 80053; 81001; 82150; 83605; 83690; 84484; 85025; 85610; 85730; 86140; 87040; 87077; 93005; 94640; 96365; 96367; 96375; 99285; C9113; J1170; J2270; J2405; J2543; J2930; J3370; J3490; J7030; Q9967; J7620

== ENCOUNTER 2022-03-16 09:25 | Emergency (ER) | payer OTHER ==
[2022-03-16] MEDS ORDERED: Sodium Chloride 0.9% 10 ML Syringe FLUSH PRN (09:57)
[2022-03-16 10:23] LABS: ESTIMATED GFR 69 mL/min (>60)
[2022-03-16] MEDS ORDERED: Sodium Chloride 0.9% 1,000 ML IV SCH (10:30)
[2022-03-16 12:32] VITALS: BP 114/71; PULSE 54
== END 2022-03-16 12:28 | disposition home or self-care (01) ==
LOC: FB.ED 09:25
DX: I48.91 Unspecified atrial fibrillation (principal); E78.00 Pure hypercholesterolemia, unspecified; J44.9 Chronic obstructive pulmonary disease, unspecified; I10 Essential (primary) hypertension; E11.9 Type 2 diabetes mellitus without complications; E66.9 Obesity, unspecified; Z68.28 Body mass index [BMI] 28.0-28.9, adult; Z79.899 Other long term (current) drug therapy; Z79.01 Long term (current) use of anticoagulants; Z79.82 Long term (current) use of aspirin; Z87.891 Personal history of nicotine dependence
CPT/HCPCS: 71045; 80053; 83880; 84484; 85025; 93005; 96360; 99284; J3490; J7030

== ENCOUNTER 2022-12-16 14:40 | Emergency (ER) | payer OTHER, MEDICARE ==
[2022-12-16 15:03] LABS: BASOPHILS ABSOLUTE AUTO 0.1 x10-3/uL (0.0-0.3); BASOPHILS PERCENT AUTO 1.1 % (0.3-3.8); EOSINOPHILS ABSOLUTE AUTO 0.2 x10-3/uL (0.0-0.6); EOSINOPHILS PERCENT AUTO 2.7 % (0.1-6.8); HEMATOCRIT 49.6 % (38.3-50.1); HEMOGLOBIN 16.6 g/dL (12.9-17.7); LYMPHOCYTES ABSOLUTE AUTO 1.9 x10-3/uL (0.5-4.5); LYMPHOCYTES PERCENT AUTO 22.6 % (15.8-45.3); MEAN CORPUSCULAR HGB CONC 33.4 g/dL (28.7-35.3); MEAN CORPUSCULAR VOLUME 89.8 fL (80.8-98.7); MONOCYTES ABSOLUTE AUTO 0.7 x10-3/uL (0.0-1.2); MONOCYTES PERCENT AUTO 8.5 % (5.5-15.2); NEUTROPHILS ABSOLUTE AUTO 5.5 x10-3/uL (1.7-6.9); NEUTROPHILS PERCENT AUTO 65.1 % (40.3-71.8); PLATELET COUNT,PLT 156 x10(3)uL (117-477); RED BLOOD CELL COUNT 5.52 x10(6)uL (3.90-5.90); RED CELL DISTRIBUTION WIDTH 15.9 % (12.4-15.0); WHITE BLOOD CELL COUNT,WBC 8.4 x10-3/uL (3.2-10.1)
[2022-12-16 15:08] LABS: BLOOD UREA NITROGEN,BUN 21 mg/dL (7-18); CARBON DIOXIDE,CO2 28 mmol/L (21-32); CHLORIDE,CL 104 mmol/L (100-110); CREATININE 1.4 mg/dL (0.70-1.30); ESTIMATED GFR 57 mL/min (>60); GLUCOSE RANDOM 149 mg/dL (80-116); POTASSIUM,K 3.8 mmol/L (3.5-5.3); SODIUM,NA 140 mmol/L (135-145)
[2022-12-16 15:14] LABS: A/G RATIO 0.8; ALANINE AMINOTRANSFERASE,ALT 23 U/L (12-36); ALBUMIN 3.4 g/dL (3.2-4.6); ALKALINE PHOSPHATASE 106 IU/L (56-112); ASPARTATE AMNIOTRANSFERASE,AST 12 IU/L (5-25); BILIRUBIN TOTAL 0.2 mg/dL (0.1-1.3); PROTEIN TOTAL,TP 7.6 g/dL (6.0-8.0)
[2022-12-16 15:15] LABS: INR 1.01 (1.00-1.24); PROTHROMBIN TIME 10.4 sec (9.0-11.1); PTT,PARTIAL THROMBOPLSTIN TIME 29.1 SECONDS (24.4-33.2)
[2022-12-16 15:20] LABS: TROPONIN I 10.3 pg/mL (4.0-60.3)
[2022-12-16] MEDS: Aspirin 81 MG Tab.Chew PO STA (15:20)
[2022-12-16] MEDS: methylPREDNISolone Sodium Succinate 125 MG/2 ML SDV IM ONE (15:30)
[2022-12-16] MEDS: Metolazone 2.5 MG Tab PO ONE (16:25)
[2022-12-16] MEDS: Albuterol/Ipratropium 3.0-0.5 MG/3 ML Neb Soln NEB ONE (16:25)
[2022-12-16] MEDS: Metoprolol Tartrate 50 MG Tab PO ONE (16:25)
[2022-12-16] MEDS: Furosemide 40 MG/4 ML VIAL IVPUSH ONE (16:30)
[2022-12-16 16:34] VITALS: BP 131/99; PULSE 88
[2022-12-16] MEDS: Iopamidol 755 Mg/ML 100 ML Bottle IV SCH (17:51)
[2022-12-16] MEDS: Amoxicillin/Clavulanate K 875-125 MG Tab PO ONE (19:00)
== END 2022-12-16 18:59 | disposition home or self-care (01) ==
LOC: FB.ED 14:40
DX: J44.1 Chronic obstructive pulmonary disease with (acute) exacerbation (principal); R07.89 Other chest pain; R09.1 Pleurisy; I10 Essential (primary) hypertension; E78.00 Pure hypercholesterolemia, unspecified; E11.42 Type 2 diabetes mellitus with diabetic polyneuropathy; E11.21 Type 2 diabetes mellitus with diabetic nephropathy; M19.90 Unspecified osteoarthritis, unspecified site; F17.210 Nicotine dependence, cigarettes, uncomplicated; E66.9 Obesity, unspecified; Z68.27 Body mass index [BMI] 27.0-27.9, adult; Z79.01 Long term (current) use of anticoagulants; Z79.82 Long term (current) use of aspirin; Z79.899 Other long term (current) drug therapy
CPT/HCPCS: 36415; 71045; 71275; 80053; 83880; 84484; 85025; 85379; 85610; 85730; 93005; 93010; 94640; 96372; 96374; 99284; 99285-25; A9270-GY; J1940; J2930; J7620; Q9967

== ENCOUNTER 2023-10-15 14:36 | Emergency (ER) | payer OTHER, MEDICARE ==
[2023-10-15] MEDS ORDERED: Azithromycin 250 MG Tab PO ONE (14:37)
[2023-10-15 14:45] VITALS: BP 137/92; PULSE 93
[2023-10-15] MEDS: Sodium Chloride 0.9% 10 ML Syringe FLUSH PRN (15:11)
[2023-10-15] MEDS: Sodium Chloride 0.9% 1,000 ML IV ONE (15:11)
[2023-10-15 15:12] LABS: BASOPHILS ABSOLUTE AUTO 0.1 x10-3/uL (0.0-0.3); BASOPHILS PERCENT AUTO 0.9 % (0.3-3.8); EOSINOPHILS ABSOLUTE AUTO 0.1 x10-3/uL (0.0-0.6); EOSINOPHILS PERCENT AUTO 1.5 % (0.1-6.8); HEMATOCRIT 49.5 % (38.3-50.1); HEMOGLOBIN 16.6 g/dL (12.9-17.7); LYMPHOCYTES ABSOLUTE AUTO 1.2 x10-3/uL (0.5-4.5); LYMPHOCYTES PERCENT AUTO 17.4 % (15.8-45.3); MEAN CORPUSCULAR HEMOGLOBIN 30.7 pg (27.0-33.3); MEAN CORPUSCULAR HGB CONC 33.6 g/dL (28.7-35.3); MEAN CORPUSCULAR VOLUME 91.4 fL (80.8-98.7); MEAN PLATELET VOLUME 8.8 fL (6.7-11.0); MONOCYTES ABSOLUTE AUTO 0.6 x10-3/uL (0.0-1.2); MONOCYTES PERCENT AUTO 7.8 % (5.5-15.2); NEUTROPHILS ABSOLUTE AUTO 5.2 x10-3/uL (1.7-6.9); NEUTROPHILS PERCENT AUTO 72.4 % (40.3-71.8); PLATELET COUNT,PLT 144 x10(3)uL (117-477); RED BLOOD CELL COUNT 5.41 x10(6)uL (3.90-5.90); RED CELL DISTRIBUTION WIDTH 15.2 % (12.4-15.0); WHITE BLOOD CELL COUNT,WBC 7.1 x10-3/uL (3.2-10.1)
[2023-10-15 15:23] LABS: BLOOD UREA NITROGEN,BUN 14 mg/dL (7-18); BUN/CREATININE RATIO 10.8 (9-20); CALCIUM 8.6 mg/dL (8.6-10.2); CARBON DIOXIDE,CO2 27 mmol/L (21-32); CHLORIDE,CL 102 mmol/L (100-110); CREATININE 1.3 mg/dL (0.70-1.30); EST CRCL DRUG DOSING (CG) 75.19 mL/min; ESTIMATED GFR 62 mL/min (>60); GLUCOSE RANDOM 125 mg/dL (80-116); POTASSIUM,K 4.1 mmol/L (3.5-5.3); SODIUM,NA 136 mmol/L (135-145)
[2023-10-15 15:24] LABS: C-REACTIVE PROTEIN < 0.50 mg/dL (<0.50); TROPONIN I 7.2 pg/mL (4.0-60.3)
[2023-10-15 15:29] LABS: ALANINE AMINOTRANSFERASE,ALT 23 U/L (12-36); ALBUMIN 3.5 g/dL (3.2-4.6); ALKALINE PHOSPHATASE 110 IU/L (56-112); ASPARTATE AMNIOTRANSFERASE,AST 14 IU/L (5-25); BILIRUBIN TOTAL 0.6 mg/dL (0.1-1.3); PROTEIN TOTAL,TP 7.1 g/dL (6.0-8.0)
[2023-10-15 15:54] LABS: STREP A BY PCR NOT DETECTED (NOT DETECT)
[2023-10-15 16:27] LABS: CORONAVIRUS COVID-19 NAA NEGATIVE (NEGATIVE)
== END 2023-10-15 16:55 | disposition home or self-care (01) ==
LOC: FB.ED 14:36
DX: I48.91 Unspecified atrial fibrillation (principal); J40 Bronchitis, not specified as acute or chronic; I10 Essential (primary) hypertension; E78.00 Pure hypercholesterolemia, unspecified; E11.40 Type 2 diabetes mellitus with diabetic neuropathy, unspecified; J44.9 Chronic obstructive pulmonary disease, unspecified; Z79.01 Long term (current) use of anticoagulants; Z79.899 Other long term (current) drug therapy
CPT/HCPCS: 36415; 71250; 80053; 84484; 85025; 86140; 87635; 87651; 93005; 96360; 99285; A9270; J3490; J7030; U0002

== ENCOUNTER 2024-03-07 09:47 | Emergency (ER) | payer OTHER, MEDICARE ==
[2024-03-07 10:17] LABS: BASOPHILS ABSOLUTE AUTO 0.1 x10-3/uL (0.0-0.3); BASOPHILS PERCENT AUTO 0.7 % (0.3-3.8); EOSINOPHILS ABSOLUTE AUTO 0.1 x10-3/uL (0.0-0.6); EOSINOPHILS PERCENT AUTO 1.2 % (0.1-6.8); HEMATOCRIT 50.7 % (38.3-50.1); HEMOGLOBIN 17.1 g/dL (12.9-17.7); LYMPHOCYTES ABSOLUTE AUTO 1.3 x10-3/uL (0.5-4.5); LYMPHOCYTES PERCENT AUTO 17.1 % (15.8-45.3); MEAN CORPUSCULAR HEMOGLOBIN 31.1 pg (27.0-33.3); MEAN CORPUSCULAR HGB CONC 33.8 g/dL (28.7-35.3); MEAN CORPUSCULAR VOLUME 91.8 fL (80.8-98.7); MEAN PLATELET VOLUME 8.9 fL (6.7-11.0); MONOCYTES ABSOLUTE AUTO 0.5 x10-3/uL (0.0-1.2); MONOCYTES PERCENT AUTO 7.2 % (5.5-15.2); NEUTROPHILS ABSOLUTE AUTO 5.6 x10-3/uL (1.7-6.9); NEUTROPHILS PERCENT AUTO 73.8 % (40.3-71.8); PLATELET COUNT,PLT 113 x10(3)uL (117-477); RED BLOOD CELL COUNT 5.52 x10(6)uL (3.90-5.90); RED CELL DISTRIBUTION WIDTH 14.7 % (12.4-15.0); WHITE BLOOD CELL COUNT,WBC 7.5 x10-3/uL (3.2-10.1)
[2024-03-07 10:24] LABS: BLOOD UREA NITROGEN,BUN 20 mg/dL (7-18); BUN/CREATININE RATIO 15.4 (9-20); CALCIUM 8.9 mg/dL (8.6-10.2); CARBON DIOXIDE,CO2 27 mmol/L (21-32); CHLORIDE,CL 103 mmol/L (100-110); CREATININE 1.3 mg/dL (0.70-1.30); ESTIMATED GFR 62 mL/min (>60); GLUCOSE RANDOM 117 mg/dL (80-116); POTASSIUM,K 4.4 mmol/L (3.5-5.3); SODIUM,NA 136 mmol/L (135-145)
[2024-03-07 10:30] LABS: ALANINE AMINOTRANSFERASE,ALT 30 U/L (12-36); ALBUMIN 3.7 g/dL (3.2-4.6); ALKALINE PHOSPHATASE 96 IU/L (56-112); ASPARTATE AMNIOTRANSFERASE,AST 20 IU/L (5-25); BILIRUBIN TOTAL 0.7 mg/dL (0.1-1.3); MAGNESIUM 1.9 mg/dL (1.8-2.5); PHOSPHORUS 3.4 mg/dL (2.6-4.6); PROTEIN TOTAL,TP 7.5 g/dL (6.0-8.0)
[2024-03-07] MEDS: methylPREDNISolone Sodium Succinate 125 MG/2 ML SDV IM ONE (11:27)
[2024-03-07 11:52] VITALS: BP 112/90; PULSE 96
== END 2024-03-07 11:45 | disposition home or self-care (01) ==
LOC: FB.ED 09:47
DX: R20.2 Paresthesia of skin (principal); I48.91 Unspecified atrial fibrillation; I10 Essential (primary) hypertension; E78.00 Pure hypercholesterolemia, unspecified; J44.9 Chronic obstructive pulmonary disease, unspecified; E11.21 Type 2 diabetes mellitus with diabetic nephropathy; E11.42 Type 2 diabetes mellitus with diabetic polyneuropathy; E66.9 Obesity, unspecified; Z90.89 Acquired absence of other organs; Z79.01 Long term (current) use of anticoagulants; Z79.51 Long term (current) use of inhaled steroids; Z79.52 Long term (current) use of systemic steroids; Z79.899 Other long term (current) drug therapy
CPT/HCPCS: 36415; 70450; 80053; 83735; 84100; 85025; 86140; 96372; 99284; J2919

== ENCOUNTER 2024-06-16 09:00 | Inpatient (IN) | payer OTHER ==
[2024-06-16] MEDS: Ondansetron 4 MG/2 ML SDV IVPUSH ONE (09:50)
[2024-06-16] MEDS: Ketorolac 30 MG/ML SDV IVPUSH ONE (09:50)
[2024-06-16] MEDS: HYDROmorphone 2 MG/ML SDV IVPUSH ONE ×2 (09:50→11:28)
[2024-06-16] MEDS: Sodium Chloride 0.9% 1,000 ML IV ONE (09:51)
[2024-06-16 09:54] LABS: BASOPHILS PERCENT AUTO 0.3 % (0.3-3.8); EOSINOPHILS PERCENT AUTO 0.4 % (0.1-6.8); HEMATOCRIT 48.1 % (38.3-50.1); HEMOGLOBIN 16.2 g/dL (12.9-17.7); LYMPHOCYTES ABSOLUTE AUTO 0.9 x10-3/uL (0.5-4.5); LYMPHOCYTES PERCENT AUTO 7.3 % (15.8-45.3); MEAN CORPUSCULAR HEMOGLOBIN 30.9 pg (27.0-33.3); MEAN CORPUSCULAR HGB CONC 33.7 g/dL (28.7-35.3); MEAN CORPUSCULAR VOLUME 91.8 fL (80.8-98.7); PLATELET COUNT,PLT 144 x10(3)uL (117-477); RED BLOOD CELL COUNT 5.24 x10(6)uL (3.90-5.90); RED CELL DISTRIBUTION WIDTH 14.6 % (12.4-15.0); WHITE BLOOD CELL COUNT,WBC 11.9 x10-3/uL (3.2-10.1)
[2024-06-16 09:56] LABS: BLOOD UREA NITROGEN,BUN 9 mg/dL (7-18); BUN/CREATININE RATIO 7.5 (9-20); CARBON DIOXIDE,CO2 25 mmol/L (21-32); CHLORIDE,CL 105 mmol/L (100-110); CREATININE 1.2 mg/dL (0.70-1.30); EST CRCL DRUG DOSING (CG) 79.41 mL/min; ESTIMATED GFR 68 mL/min (>60); GLUCOSE RANDOM 146 mg/dL (80-116); SODIUM,NA 139 mmol/L (135-145)
[2024-06-16 10:02] LABS: ALANINE AMINOTRANSFERASE,ALT 20 U/L (12-36); ALBUMIN 3.7 g/dL (3.2-4.6); ALKALINE PHOSPHATASE 106 IU/L (56-112); ASPARTATE AMNIOTRANSFERASE,AST 13 IU/L (5-25); BILIRUBIN TOTAL 0.6 mg/dL (0.1-1.3); PROTEIN TOTAL,TP 7.4 g/dL (6.0-8.0)
[2024-06-16 10:06] LABS: C-REACTIVE PROTEIN 2.87 mg/dL (<0.50)
[2024-06-16] MEDS: Iopamidol 755 Mg/ML 100 ML Bottle IV SCH (10:32)
[2024-06-16] MEDS: Piperacillin/Tazobactam 4.5 GM in Sodium Chloride 0.9% 100 ML IV ONE (10:33)
[2024-06-16 11:56] LABS: BILIRUBIN,URINE NEGATIVE (NEGATIVE); GLUCOSE,URINE >1000 mg/dL (NORMAL); KETONES,URINE NEGATIVE (NEGATIVE); LEUKOCYTE ESTERASE,URINE NEGATIVE (NEGATIVE); NITRITE,URINE NEGATIVE (NEGATIVE); OCCULT BLOOD,URINE MODERATE (NEGATIVE); PROTEIN,URINE NEGATIVE (NEGATIVE); UROBILINOGEN,URINE NORMAL (NEGATIVE)
[2024-06-16 12:01] LABS: APPEARANCE,URINE CLEAR (CLEAR); BACTERIA,URINE FEW (NS); COLOR,URINE YELLOW (YELLOW); RBC,URINE 0-5 (0-5); SQUAMOUS EPITHELIAL CELLS,UR FEW (NS,R,O); WBC,URINE 0-5 (0-5)
[2024-06-16] MEDS ORDERED: Naloxone 0.4 MG/ML SDV IVPUSH PRN (13:53)
[2024-06-16] MEDS: Dextrose 5%-0.9% NaCl 1,000 ML IV SCH (14:27)
[2024-06-16] MEDS ORDERED: Glucagon,Human Recombinant 1 MG Vial IM PRN (14:56)
[2024-06-16] MEDS ORDERED: 50% Dextrose in Water 50 ML Syringe IVPUSH PRN (14:56)
[2024-06-16] MEDS: Formoterol/Mometasone 200-5 MCG 8.8 GM Inhaler IH SCH (15:50)
[2024-06-16] MEDS: HYDROmorphone 2 MG/ML SDV IVPUSH PRN (15:57)
[2024-06-16] MEDS: Digoxin 500 MCG/2 ML Amp IVPUSH SCH (16:01)
[2024-06-16] MEDS: Piperacillin/Tazobactam 4.5 GM in Sodium Chloride 0.9% 100 ML IV SCH (16:05)
[2024-06-16] MEDS: Insulin Lispro 100 Unit/ML 3 ML KwikPen SUBCUT SCH (17:00)
[2024-06-16] MEDS: Metoprolol Tartrate 5 MG/5 ML SDV IV SCH (20:22)
[2024-06-16] MEDS: Sodium Chloride 0.9% 10 ML Syringe FLUSH PRN (20:41)
[2024-06-16] MEDS: Heparin Sodium/0.45% NaCl 25,000 UNITS/500 ML BAG IV SCH (20:50)
[2024-06-16] MEDS ORDERED: Metoprolol Tartrate 2.5 MG in Sodium Chloride 0.9% 50 ML IV SCH (21:00)
[2024-06-17] MEDS: Enoxaparin 120 MG/0.8 ML Syringe SUBCUT ONE (00:13)
[2024-06-17] MEDS: Ketorolac 30 MG/ML SDV IVPUSH PRN (02:28)
[2024-06-17] MEDS: Pantoprazole 40 MG Vial IVPUSH SCH (05:16)
[2024-06-17 06:35] LABS: BASOPHILS ABSOLUTE AUTO 0.1 x10-3/uL (0.0-0.3); BASOPHILS PERCENT AUTO 0.6 % (0.3-3.8); EOSINOPHILS ABSOLUTE AUTO 0.1 x10-3/uL (0.0-0.6); HEMATOCRIT 42.8 % (38.3-50.1); HEMOGLOBIN 14.7 g/dL (12.9-17.7); LYMPHOCYTES ABSOLUTE AUTO 1.1 x10-3/uL (0.5-4.5); LYMPHOCYTES PERCENT AUTO 13.2 % (15.8-45.3); MEAN CORPUSCULAR HEMOGLOBIN 31.4 pg (27.0-33.3); MEAN CORPUSCULAR HGB CONC 34.3 g/dL (28.7-35.3); MEAN CORPUSCULAR VOLUME 91.6 fL (80.8-98.7); MEAN PLATELET VOLUME 8.3 fL (6.7-11.0); MONOCYTES ABSOLUTE AUTO 0.7 x10-3/uL (0.0-1.2); MONOCYTES PERCENT AUTO 8.2 % (5.5-15.2); NEUTROPHILS ABSOLUTE AUTO 6.6 x10-3/uL (1.7-6.9); PLATELET COUNT,PLT 127 x10(3)uL (117-477); RED BLOOD CELL COUNT 4.67 x10(6)uL (3.90-5.90); RED CELL DISTRIBUTION WIDTH 14.6 % (12.4-15.0); WHITE BLOOD CELL COUNT,WBC 8.5 x10-3/uL (3.2-10.1)
[2024-06-17 06:50] LABS: A/G RATIO 0.8; ALANINE AMINOTRANSFERASE,ALT 8 U/L (12-36); ALBUMIN 2.9 g/dL (3.2-4.6); ALKALINE PHOSPHATASE 87 IU/L (56-112); ASPARTATE AMNIOTRANSFERASE,AST 13 IU/L (5-25); BILIRUBIN TOTAL 0.6 mg/dL (0.1-1.3); BLOOD UREA NITROGEN,BUN 10 mg/dL (7-18); BUN/CREATININE RATIO 9.1 (9-20); CALCIUM 8.4 mg/dL (8.6-10.2); CARBON DIOXIDE,CO2 26 mmol/L (21-32); CHLORIDE,CL 107 mmol/L (100-110); CREATININE 1.1 mg/dL (0.70-1.30); EST CRCL DRUG DOSING (CG) 84.39 mL/min; ESTIMATED GFR 75 mL/min (>60); GLUCOSE RANDOM 116 mg/dL (80-116); POTASSIUM,K 3.9 mmol/L (3.5-5.3); PROTEIN TOTAL,TP 6.5 g/dL (6.0-8.0); SODIUM,NA 139 mmol/L (135-145)
[2024-06-17] MEDS: Formoterol/Mometasone 200-5 MCG 8.8 GM Inhaler IH SCH (08:11)
[2024-06-17] MEDS: Piperacillin/Tazobactam 4.5 GM in Sodium Chloride 0.9% 100 ML IV SCH (13:47)
[2024-06-17] MEDS: Enoxaparin 120 MG/0.8 ML Syringe SUBCUT SCH (16:16)
[2024-06-17] MEDS: MVI, Adult with Vitamin K 10 ML in Sodium Chloride 0.9% 500 ML IV SCH ×2 (17:12→18:06)
[2024-06-18 07:12] LABS: BASOPHILS PERCENT AUTO 0.6 % (0.3-3.8); EOSINOPHILS ABSOLUTE AUTO 0.2 x10-3/uL (0.0-0.6); HEMATOCRIT 41.8 % (38.3-50.1); HEMOGLOBIN 14.3 g/dL (12.9-17.7); LYMPHOCYTES ABSOLUTE AUTO 1.2 x10-3/uL (0.5-4.5); LYMPHOCYTES PERCENT AUTO 15.2 % (15.8-45.3); MEAN CORPUSCULAR HEMOGLOBIN 31.1 pg (27.0-33.3); MEAN CORPUSCULAR HGB CONC 34.1 g/dL (28.7-35.3); MEAN CORPUSCULAR VOLUME 91.2 fL (80.8-98.7); MEAN PLATELET VOLUME 8.6 fL (6.7-11.0); MONOCYTES ABSOLUTE AUTO 0.6 x10-3/uL (0.0-1.2); MONOCYTES PERCENT AUTO 7.5 % (5.5-15.2); NEUTROPHILS ABSOLUTE AUTO 5.8 x10-3/uL (1.7-6.9); NEUTROPHILS PERCENT AUTO 74.7 % (40.3-71.8); PLATELET COUNT,PLT 147 x10(3)uL (117-477); RED BLOOD CELL COUNT 4.59 x10(6)uL (3.90-5.90); RED CELL DISTRIBUTION WIDTH 14.8 % (12.4-15.0); WHITE BLOOD CELL COUNT,WBC 7.7 x10-3/uL (3.2-10.1)
[2024-06-18 07:25] LABS: A/G RATIO 0.8; ALANINE AMINOTRANSFERASE,ALT 15 U/L (12-36); ALBUMIN 2.8 g/dL (3.2-4.6); ALKALINE PHOSPHATASE 79 IU/L (56-112); ASPARTATE AMNIOTRANSFERASE,AST 12 IU/L (5-25); BILIRUBIN TOTAL 0.6 mg/dL (0.1-1.3); BLOOD UREA NITROGEN,BUN 8 mg/dL (7-18); CALCIUM 8.6 mg/dL (8.6-10.2); CARBON DIOXIDE,CO2 24 mmol/L (21-32); CHLORIDE,CL 106 mmol/L (100-110); EST CRCL DRUG DOSING (CG) 92.83 mL/min; ESTIMATED GFR 85 mL/min (>60); GLUCOSE RANDOM 105 mg/dL (80-116); POTASSIUM,K 3.9 mmol/L (3.5-5.3); PROTEIN TOTAL,TP 6.5 g/dL (6.0-8.0); SODIUM,NA 139 mmol/L (135-145)
[2024-06-18] MEDS ORDERED: Albuterol/Ipratropium 3.0-0.5 MG/3 ML Neb Soln INH PRN (11:40)
[2024-06-18] MEDS ORDERED: Albuterol 6.7 GM Inhaler INH PRN (12:07)
[2024-06-18] MEDS: Acetaminophen 325 MG Tab PO PRN (14:10)
[2024-06-18] MEDS: Digoxin 125 MCG Tab PO SCH (14:25)
[2024-06-18] MEDS ORDERED: Metoprolol Succinate 25 MG Tab.ER PO SCH (15:15)
[2024-06-18] MEDS: Apixaban 5 MG Tab PO SCH (18:02)
[2024-06-18] MEDS: Tamsulosin 0.4 MG Cap.ER PO SCH (20:11)
[2024-06-18] MEDS: atorvaSTATin 20 MG Tab PO SCH (20:12)
[2024-06-18] MEDS: Finasteride 5 MG Tab PO SCH (20:13)
[2024-06-18] MEDS: Calcium Carbonate 500 MG Tablet PO SCH (20:13)
[2024-06-18] MEDS: Multivitamin Tab PO SCH (20:13)
[2024-06-18] MEDS ORDERED: oxyCODONE 5 MG Tab PO PRN (21:52)
[2024-06-19] MEDS: oxyCODONE 5 MG Tab PO PRN (00:38)
[2024-06-19] MEDS: Pantoprazole 40 MG Tab.CR PO SCH (05:46)
[2024-06-19 07:03] LABS: BASOPHILS ABSOLUTE AUTO 0.1 x10-3/uL (0.0-0.3); EOSINOPHILS ABSOLUTE AUTO 0.1 x10-3/uL (0.0-0.6); EOSINOPHILS PERCENT AUTO 2.4 % (0.1-6.8); HEMATOCRIT 43.3 % (38.3-50.1); HEMOGLOBIN 14.8 g/dL (12.9-17.7); LYMPHOCYTES PERCENT AUTO 15.6 % (15.8-45.3); MEAN CORPUSCULAR HEMOGLOBIN 31.1 pg (27.0-33.3); MEAN CORPUSCULAR HGB CONC 34.2 g/dL (28.7-35.3); MEAN CORPUSCULAR VOLUME 90.9 fL (80.8-98.7); MEAN PLATELET VOLUME 8.9 fL (6.7-11.0); MONOCYTES ABSOLUTE AUTO 0.5 x10-3/uL (0.0-1.2); MONOCYTES PERCENT AUTO 8.4 % (5.5-15.2); NEUTROPHILS ABSOLUTE AUTO 4.5 x10-3/uL (1.7-6.9); NEUTROPHILS PERCENT AUTO 72.6 % (40.3-71.8); PLATELET COUNT,PLT 179 x10(3)uL (117-477); RED BLOOD CELL COUNT 4.77 x10(6)uL (3.90-5.90); RED CELL DISTRIBUTION WIDTH 14.1 % (12.4-15.0); WHITE BLOOD CELL COUNT,WBC 6.1 x10-3/uL (3.2-10.1)
[2024-06-19 07:11] LABS: BLOOD UREA NITROGEN,BUN 8 mg/dL (7-18); CARBON DIOXIDE,CO2 25 mmol/L (21-32); CHLORIDE,CL 104 mmol/L (100-110); EST CRCL DRUG DOSING (CG) 92.83 mL/min; ESTIMATED GFR 85 mL/min (>60); GLUCOSE RANDOM 98 mg/dL (80-116); POTASSIUM,K 3.9 mmol/L (3.5-5.3); SODIUM,NA 140 mmol/L (135-145)
[2024-06-19] MEDS: Cholecalciferol (Vitamin D3) 25 MCG Tab PO SCH (08:35)
[2024-06-19] MEDS ORDERED: Ibuprofen 200 MG Tab PO PRN (10:19)
[2024-06-19 12:43] VITALS: BP 143/80; PULSE 62
[2024-06-19] MEDS ORDERED: Metoprolol Succinate 25 MG Tab.ER PO SCH (15:00)
== END 2024-06-19 12:04 | disposition home or self-care (01) | DRG 392 ==
LOC: FB.ED 09:00 → FB.MS 12:16
PROVIDERS: ADMIT Internal Medicine; ATTEND Internal Medicine
DX: K57.92 Diverticulitis of intestine, part unspecified, without perforation or abscess without bleeding (principal); K57.32 Diverticulitis of large intestine without perforation or abscess without bleeding; I48.20 Chronic atrial fibrillation, unspecified; J44.9 Chronic obstructive pulmonary disease, unspecified; E11.9 Type 2 diabetes mellitus without complications; E11.42 Type 2 diabetes mellitus with diabetic polyneuropathy; Z68.30 Body mass index [BMI] 30.0-30.9, adult; G47.33 Obstructive sleep apnea (adult) (pediatric); H54.7 Unspecified visual loss; E78.00 Pure hypercholesterolemia, unspecified; I10 Essential (primary) hypertension; K58.9 Irritable bowel syndrome, unspecified; E11.21 Type 2 diabetes mellitus with diabetic nephropathy; E11.40 Type 2 diabetes mellitus with diabetic neuropathy, unspecified; F98.8 Other specified behavioral and emotional disorders with onset usually occurring in childhood and adolescence; F32.A Depression, unspecified; E66.9 Obesity, unspecified; F12.90 Cannabis use, unspecified, uncomplicated; E86.0 Dehydration; Z98.890 Other specified postprocedural states; Z86.73 Personal history of transient ischemic attack (TIA), and cerebral infarction without residual deficits; Z95.2 Presence of prosthetic heart valve; Z79.899 Other long term (current) drug therapy; Z90.49 Acquired absence of other specified parts of digestive tract; Z79.01 Long term (current) use of anticoagulants; Z85.528 Personal history of other malignant neoplasm of kidney
CPT/HCPCS: 36415; 74177; 80048; 80053; 81001; 82947; 83690; 85025; 85730; 86140; 87040; 94150; 96361; 96365; 96375; 96376; 99223; 99232; 99238; 99284; 99285-25; A9270-GY; J1160; J1171; J1644; J1650; J1815; J1885; J2405; J2470; J2543; J3490; J7030; J7040; Q9967